=== PATIENT | female | born 1950 | race Caucasian/White ===

== ENCOUNTER → 2016-12-15 | Outpatient (CLI) | payer OTHER, MEDICARE ==
[~2016-12-15] VITALS: Ht 160 cm; Wt 59.9 kg
[~2016-12-15] MED LIST: ALENDRONATE; AMITRIPTYLINE H10 M1 PO; ARMOUR THYROID15 M1 PO; CADUET 10 MG-21 EACH PO; CEPHALEXIN 500500 M1 PO; ELAVIL PO; FENTANYL PA25 MCG/HR TP; FENTANYL PA50 MCG/HR TP; FENTANYL PATCH75 MCG TP; FLEXERIL PO; HYDROCODON-ACE1 EAC5 PO; LUNESTA3 MG PO; MEDROLDOSEPACK PO; MOBIC15 MG PO; NEURONTIN 300300 M1 PO; OPANA ER10 MG PO; OXYCONTIN CR 2020 M1 PO; OXYCONTIN CR 4040 M1 PO; OXYCONTIN10 M1 PO; OXYCONTIN20 M1 PO; OXYCONTIN30 MG PO; OXYCONTIN40 MG PO; OXYCONTIN60 MG PO; PERCOCET 10-321 EAC1 PO; PERCOCET 10-321 EACH PO; PERCOCET 5-3251 EACH PO; PERCOCET PO; REQUIP 1 MG TABL1 M1 PO; SPIRONOLACTONE100 M1 PO; SPIRONOLACTONE100 M4; SPIRONOLACTONE50 MG PO
--- NOTE | ~2016-12-15 | HPC ---
[facility] [place] [address] PAIN MANAGEMENT CONSULTATION Name: JEAN MARIE CH Room #: REG [facility].#: [id number] Admission: 12/15/16 Attend Phys: Kandace Jones MD Discharge: Date of : 48 Report #: [id number] THIS REPORT FOR: //name// CC: Robbie Jones DATE OF SERVICE: 12/15/2016 PRIMARY PHYSICIAN: Aniyah Avalos MD FOLLOWUP COMPLAINT: Here for medication renewal. FOLLOWUP HISTORY: The patient is a 66-year-old female who has been followed in the pain clinic because of chronic cervical pain. She also has had pain as a result of hip problems. At this point, she continues to have pain and discomfort, which radiates down into her arm. She is considering surgery for this problem. She is scheduled for this summer. She feels that her medications continue to be quite helpful. She would like to proceed with this surgery. She finds that her opioid medications continue to be helpful and enable her to stay gainfully employed. As you recall, she works as a teacher. She has come today for renewal of her medications. She is not having any adverse effects. She finds that they continue to be helpful and enable her to remain gainfully employed. PHYSICAL EXAMINATION: Blood pressure is 155/90, pulse 88, respiratory rate 16, room air saturation is 99%. The patient has pain and discomfort in the neck with pain radiating down to her arm. She continues to work. She notes working on her computer worsens pain and discomfort. She also note some increased pain at night. IMPRESSION: Cervical radiculopathy. The patient is scheduled to undergo cervical treatment this summer after school is out. RECOMMENDATIONS: 1. We discussed treatment options with the patient. She will continue with her current medical regimen of Percocet 5 one q. 4-6 p.r.n. worsening of pain and with her current medical regimen of Percocet 10/325 one p.o. t.i.d. and OxyContin 10 mg b.i.d. 2. 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 3. History of knee and hip surgeries, improved. [facility] [address] [place] [address] PAIN MANAGEMENT CONSULTATION Name: JEAN MARIE CH Room #: REG JARAD Ross.#: [id number] Admission: 12/15/16 Attend Phys: Kandace Jones MD Discharge: Date of : 48 Report #: [id number] We would like to thank you for letting us participate in her care. We hope she continues to improve. By: [id number] Kandace Jones MD /nt
[2016-12-15 11:06] VITALS: BP 155/90
== END | disposition home or self-care (01) ==
LOC: PAIN 06:55
DX: M54.12 Radiculopathy, cervical region (principal); G89.29 Other chronic pain; Z98.890 Other specified postprocedural states

== ENCOUNTER → 2017-03-11 | Outpatient (CLI) | payer OTHER, MEDICARE ==
[~2017-03-11] VITALS: Ht 160 cm; Wt 59.1 kg
[2017-03-11 08:40] VITALS: BP 155/110
== END | disposition home or self-care (01) ==
LOC: PAIN 06:48
DX: M48.02 Spinal stenosis, cervical region (principal); G89.29 Other chronic pain; D80.8 Other immunodeficiencies with predominantly antibody defects; Z98.890 Other specified postprocedural states; Z88.8 Allergy status to other drugs, medicaments and biological substances

== ENCOUNTER → 2017-05-11 | Outpatient (CLI) | payer OTHER, MEDICARE ==
[~2017-05-11] VITALS: Ht 162.6 cm; Wt 59.9 kg
[~2017-05-11] MED LIST changes: +OXYCODONE HCL20 M1 PO
--- NOTE | ~2017-05-11 | HPC ---
[facility] [place] [address] PAIN MANAGEMENT CONSULTATION Name: JEAN MARIE CH Room #: REG [facility].#: [id number] Admission: 05/11/17 Attend Phys: Kandace Jones MD Discharge: Date of : 48 Report #: [id number] THIS REPORT FOR: //name// CC: Rbobie Jones DATE OF SERVICE: 05/11/2017 FOLLOWUP COMPLAINT: School has started and my pain is a little bit worse. FOLLOWUP HISTORY: The patient is a 66-year-old female who has been followed in the pain clinic because of cervical radiculopathy. 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 She has noted some worsening of her pain and discomfort association with the increased activity and requirements. At this juncture, she would like to postpone surgery until a later date. She feels that change in her medications might provide her more relief and enable her to stay gainfully employed throughout this year. She is having no problems with her medications. She is not having any problems with mentation. She is keeping her medications in a guarded area. She is aware of the possible complications of tolerance as well as depends associated with narcotics, but feels that the benefit she is receiving warrants continuation of her medications. PHYSICAL EXAMINATION: Blood pressure is 156/74, pulse 74, respiratory rate 14, room air saturation 98%. Height 5 feet 4 inches, weight 130 pounds, BMI is 22. The patient has pain and discomfort in the neck with pain radiating down into her arms and neck. She rates her pain as a 03/07. Pain is exacerbated by working on a computer as well as night time, she notes worsening of her pain. IMPRESSION: Cervical radiculopathy, scheduled to undergo surgery in the future as required. 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 RECOMMENDATIONS: We will continue the patient's use of OxyContin 20 mg 1 p.o. b.i.d. will be tried. She will also continue with oxycodone 10/325 one p.o. t.i.d. as needed. She will call us if she has any problems with her medications. We would like to thank you for letting us participate in her care. We hope she continues to improve. By: [id number] Kandace Jones MD /PMT
[2017-05-11 08:15] VITALS: BP 156/74
== END | disposition home or self-care (01) ==
LOC: PAIN 06:53
DX: M54.12 Radiculopathy, cervical region (principal); Z98.890 Other specified postprocedural states; Z79.899 Other long term (current) drug therapy

== ENCOUNTER → 2017-08-24 | Outpatient (CLI) | payer OTHER, MEDICARE ==
[~2017-08-24] MED LIST changes: +DURAGESIC1 EACH TRANSDERM; +OXYCODONE HCL15 MG PO
== END ==
LOC: MRI 07-15 14:30
DX: M48.02 Spinal stenosis, cervical region (principal); M54.12 Radiculopathy, cervical region; M43.05 Spondylolysis, thoracolumbar region; M51.25 Other intervertebral disc displacement, thoracolumbar region; M47.892 Other spondylosis, cervical region; M50.21 Other cervical disc displacement, high cervical region; M50.221 Other cervical disc displacement at C4-C5 level; M50.222 Other cervical disc displacement at C5-C6 level; M50.223 Other cervical disc displacement at C6-C7 level

== ENCOUNTER → 2017-09-23 | Outpatient (CLI) | payer OTHER, MEDICARE ==
[~2017-09-23] VITALS: Ht 160 cm; Wt 63.0 kg
[~2017-09-23] MED LIST changes: +IRBESARTAN150 MG PO
--- NOTE | ~2017-09-23 | HPC ---
[facility] [place] [address] PAIN MANAGEMENT CONSULTATION Name: JEAN MARIE CH Room #: REG JARAD Hawkins.#: [id number] Admission: 09/23/17 Attend Phys: Kandace Jones MD Discharge: Date of : 48 Report #: [id number] THIS REPORT FOR: //name// CC: Robbie Jones DATE OF SERVICE: 09/23/2017 FOLLOWUP COMPLAINT: "I am going to tried to have surgery in a few months. FOLLOWUP HISTORY: The patient is a 67-year-old female who has been followed in the pain clinic because of chronic neck and arm pain. She continues to have cervical radiculopathy. 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 She would like to continue working until the end of this year. At that time, she would then consider undergoing surgery to correct her chronic cervical pain. She feels that her medications are working reasonably well. As you recall, she was forced by her insurance company to try other medications. She failed their use and is now currently on her old medication, which has been most effective which is Percocet 10 mg t.i.d. and OxyContin 20 mg b.i.d. She finds that this medication helps decrease her pain to a level of 5, which she can tolerate. Denies any untoward complications with this medication. Keeps her medications in a guarded area. She is aware of the complications associated with opioid medications, which include possibility of tolerance and addiction. She feels that the medications simply enables her to engage in activities of daily living without problems. She would like to have her medications renewed. She states that she is going to see a neurosurgeon, Dr. Elías Feng in October 2017. ALLERGIES: MORPHINE CAUSED RASH, ITCHING, AND HIVES, FENTANYL WAS PROBLEMATIC AND CAUSE SOME GI UPSET. MEDICATIONS: Current medications include Oxycodone 10/325 mg one p.o. t.i.d., OxyContin 20 mg 1 p.o. b.i.d., spironolactone 100 mg b.i.d., Lunesta 3 mg at bedtime, Requip 1 mg at bedtime, Thyroid 15 mg tablet, Sidney Thyroid 20 mcg daily, and Caduet (amlodipine/atorvastatin) daily. PHYSICAL EXAMINATION: GENERAL: The patient is a well-developed, well-nourished white female. Appearance, appears stated age, orientated x 3. Affect is appropriate. HEENT: Atraumatic, good hearing. Eyes, extraocular eye muscles intact with no problems with the sclerae. Nose is without trauma or discharge. Buccal membranes intact. NECK: Without masses or history of bruits. LUNGS: Clear to auscultation. HEART: Regular rate. [address] [address] PAIN MANAGEMENT CONSULTATION Name: JEAN MARIE CH [facility]: [facility] [id number] Admission: 09/23/17 Attend Phys: Kandace Jones MD Discharge: Date of : 48 Report #: [id number] ABDOMEN: Nontender. NEUROLOGIC: The patient has pain and discomfort in the neck area with pain radiating down into her arms with numbness, tingling, and weakness. Muscle strength is generally within normal limits, 5/5 in the right and left hand. PAIN CLINIC ASSESSMENT: 1. History of osteoarthritis. There is involvement in her neck, hip, and knees. 2. History of rheumatoid arthritis, not applicable. 3. Height 5 feet 3 inches, weight 139 pounds, BMI is 24. 4. Vital signs: Blood pressure 179/118, pulse 80, respiratory rate 20, and room air saturation 98%. 5. Pain intensity 5. 6. Fall risk. Does not need assistance in standing or walking. The patient has not fallen in the last 3 months. 7. The patient on blood thinner, none. 8 History of hypertension, yes. The patient is currently being treated. 9. Opioid therapy greater than 6 weeks. The patient has signed her contract and gets her medications only from one source our pain clinic. 10. Risk assessment tool, low risk. 11. Functional assessment tool 40/70. 12. Recreational drug use, never used recreational drugs. 13. Tobacco, never smoked tobacco. 14. Alcohol, does not use alcohol on a regular basis. IMPRESSION: 1. Cervical radiculopathy, which continues to respond to OxyContin and oxycodone. The patient will continue with her current medical regimen. 2. History of low immunoglobulin status, not problematic at this juncture. 3. History of staph infections in the distant past. 4. History of knee and hip surgery. RECOMMENDATIONS: We discussed treatment options with the patient. Risks and benefits of continued OxyContin medication use were discussed. She finds that her medications continue to be quite problematic. Without this, she would not have been able to work over the last couple of years and has been able to delay long term. 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 She did have problems with fentanyl and morphine when her insurance company required that she try these medications. At this juncture, the renewal of her OxyContin and oxycodone have made her life much more satisfactory. She is going to see Dr. Elías Feng in October 2017. She is contemplating surgery later on this year; hopefully, she can continue working until after school is out. [facility] [address] [place] [address] PAIN MANAGEMENT CONSULTATION Name: JEAN MARIE CH Room #: REG JARAD Ma#: [id number] Admission: 09/23/17 Attend Phys: Kandace Jones MD Discharge: Date of : 48 Report #: [id number] We would like to thank you for letting us participate in her care. We hope she continues to improve. <ELECTRONICALLY SIGNED> By: Kandace Jones MD 10/05/17 [id number] Kandace Jones MD /[facility]
[2017-09-23 08:19] VITALS: BP 179/118
== END ==
LOC: PAIN 06:53
DX: M54.12 Radiculopathy, cervical region (principal); Z86.2 Personal history of diseases of the blood and blood-forming organs and certain disorders involving the immune mechanism; Z86.14 Personal history of Methicillin resistant Staphylococcus aureus infection; Z98.890 Other specified postprocedural states

== ENCOUNTER → 2017-12-16 | Outpatient (CLI) | payer OTHER, MEDICARE ==
[~2017-12-16] VITALS: Ht 160 cm; Wt 63.5 kg
[~2017-12-16] MED LIST changes: -IRBESARTAN150 MG PO
--- NOTE | ~2017-12-16 | HPC ---
[facility] [place] [address] [place] [address] PAIN MANAGEMENT CONSULTATION Name: JEAN MARIE CH Room #: REG JARAD Ma#: [id number] Admission: 12/16/17 Attend Phys: Kandace Jones MD Discharge: Date of : 48 Report #: [id number] THIS REPORT FOR: //name// CC: Robbie Jones DATE OF SERVICE: 12/16/2017 FOLLOWUP COMPLAINT: Here for medication renewal and I talked with Dr. Feng about my neck. He feels that I should wait. FOLLOWUP HISTORY: The patient is a 67-year-old female who has been followed in the pain clinic. As you recall, she is a school age teacher. She has been experiencing cervical radiculopathy for a number of years. Her current medications have been helpful. Because of their use she has been able to continue working. She is considering retiring in the next few months. 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 She rates her pain today as a 7-8. She is somewhat saddened. Dr. Feng stated that she could undergo surgery, but he is not sure that this would totally eliminate her pain. She feels that her current medication is helpful, but is losing some of its effectiveness. She would like to continue with her current medical regimen. ALLERGIES: MORPHINE. MEDICATIONS: Spironolactone 100 mg b.i.d., Lunesta 3 mg at bedtime, Requip 1 mg at bedtime, Thyroid 15 mg, takes 20 mcg daily, amlodipine/atorvastatin 1 tablet daily. PAIN CLINIC ASSESSMENT: 1. History of osteoarthritis involving her neck, hips and knees: 2. Height 5 feet 3 inches, weight 140 pounds, BMI is 24.8. 3. Vital signs, blood pressure 172/107, pulse 75, respiratory rate 14, room air saturation 97%. 4. Pain intensity 7-8 at bedtime, about 5 in the morning. 5. Fall risk. The patient has not fallen in the last 3 months. 6. Blood thinner. The patient is not on a blood thinner 7. History of hypertension. The patient is being treated for hypertension. 8. Opioid therapy. The patient is receiving her medications through the opioid, contract in the pain clinic. 9. Risk assessment tool: Low risk for opioid medications. 10. Functional assessment tool. 2. Recreational drug use. Denies use of recreational drugs. [address] [address] PAIN MANAGEMENT CONSULTATION Name: JEAN MARIE CH Room #: REG [facility]#: [id number] Admission: 12/16/17 Attend Phys: Kandace Jones MD Discharge: Date of : 48 Report #: [id number] 3. Tobacco: The patient has never smoked. 4. Alcohol: The patient does not drink alcoholic beverages. PHYSICAL EXAMINATION: GENERAL: The patient is a well-developed, well-nourished white female. She appears her stated age. Orientation, she is alert and oriented x 3. Affect is appropriate. Speech is fluent is normocephalic, atraumatic. Extraocular muscles intact. Sclerae not injected. Hearing is within normal limits. Mucous membranes are moist. NECK: Without adenopathy or JVD. Notes some increased pain and discomfort with flexion, extension, left and right lateral rotation of her neck. CHEST: Clear to auscultation. HEART: Regular rate. ABDOMEN: Nontender. MUSCULOSKELETAL: Within normal limits without significant scoliosis, lordosis, and kyphosis. Does have some pain and discomfort in the upper extremities with pain that radiates into her neck. Pain can be exacerbated by walking, sitting and more problematic at night. Lower extremities notes some pain and discomfort in the right hip. Has some myofascial pain in the mid portion of her back. IMPRESSION: 1. Cervical radiculopathy, which responds to OxyContin and oxycodone. We will continue with the patient's current medication. 2. Low immunoglobulin status stable at this juncture. 3. History of knee and hip surgery secondary to osteoarthritic changes. 4. Chronic pain, has been seen by the orthopedic surgery who recommends that we continue with her current medications until there is no longer effective. RECOMMENDATIONS: We discussed treatment options with the patient. She is somewhat saddened that Dr. Feng feels that her pain may not be significantly improved with surgery, but could help stabilize her neck. At this juncture, she will continue with the current medication. She will call us if she has any problems with her medications. She has noted some slight decrease in its effectiveness. We will try Gralise/gabapentin and have the treat this. Hopefully, this will give some benefit to the pain and discomfort, which she is experiencing. If her pain continues to be problematic and not help, we may consider increasing her OxyContin/opioid medications. A small amount to help her through the difficult times when the pain is most problematic in the evening. We would like to thank you for letting us participate in her care. A script has been written for her medications. She has been given a medication. She has been given a Gralise dose pack to take over the next 2 weeks. She will call us in about 2 weeks and tell us how things are going. We would like to [facility] [place] [address] PAIN MANAGEMENT CONSULTATION Name: JEAN MARIE CH Room #: REG JARAD Ma#: [id number] Admission: 12/16/17 Attend Phys: Kandace Jones MD Discharge: Date of : 48 Report #: [id number] thank you for letting us participate in her care. We hope she continues to improve. <ELECTRONICALLY SIGNED> By: Kandace Jones MD 12/20/17 08 1336 29 Kandace Jones MD /PMT
[2017-12-16 08:21] VITALS: BP 172/107
== END ==
LOC: PAIN 08:14
DX: M54.12 Radiculopathy, cervical region (principal); M19.90 Unspecified osteoarthritis, unspecified site; Z79.899 Other long term (current) drug therapy; Z88.5 Allergy status to narcotic agent

== ENCOUNTER → 2018-03-03 | Outpatient (CLI) | payer OTHER, MEDICARE ==
[~2018-03-03] VITALS: Ht 160 cm; Wt 61.2 kg
--- NOTE | ~2018-03-03 | HPC ---
[facility] [place] [address] PAIN MANAGEMENT CONSULTATION Name: JEAN MARIE CH Room #: REG JARAD Ma#: [id number] Admission: 03/03/18 Attend Phys: Kandace Jones MD Discharge: Date of : 48 Report #: [id number] THIS REPORT FOR: //name// CC: Robbie Jones DATE OF SERVICE: 03/03/2018 FOLLOWUP COMPLAINT: Here for medications. I have retired. FOLLOWUP HISTORY: The patient is a 67-year-old female who has been followed in the pain clinic because of chronic pain. As you recall, she has some cervical radiculopathy. She also has problems with her hips. She had a hip replaced in the past. At this juncture, she has noticed some worsening of pain and discomfort involving her left hip. She would like to have this one performed. She has followed up with her surgeon. States that now she is on Medicare. She has been put on a waiting list to be evaluated for surgery. It is about July of this year. 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 She continues to have some pain and discomfort. Rates her pain as a 5/10. Pain in the hip is more problematic than that in the neck at this juncture. She would like to continue with her current medications. She does not have any problems with the medications. Does feel that her pain medication is beginning to wane somewhat. Wondering if she could increase her hydrocodone by 10 mg daily. ALLERGIES: MORPHINE. CURRENT MEDICATIONS: Spironolactone 100 mg b.i.d., Lunesta 3 mg at bedtime, Requip 1 mg at bedtime, thyroid 15 mg, amlodipine/atorvastatin 1 mg daily. PAIN CLINIC ASSESSMENT: 1. History of osteoarthritis involving her neck, hips, and knees 2. Height 5 feet 3 inches, weight 135 pounds, BMI is 23.9. 3. Vital signs: Blood pressure 139/104, pulse 74, respiratory rate 14, room air saturation 98%. 4. Pain intensity is 5/10. 5. Fall risk. The patient fell after taking the Gralise medication and since stopped using that medication. 6. Blood thinner. The patient is not on a blood thinning medication. 7. History of hypertension. The patient is being treated for hypertension. 8. Opioid therapy greater than 6 weeks. The patient is on opioid therapy medication and receives from 1 source. 9. Risk assessment tool, low risk for opioid use. 10. Functional assessment tool, 40 out of 70 as a score in the past. [address] [address] PAIN MANAGEMENT CONSULTATION Name: JEAN MARIE CH Room #: REG [facility] Anil#: [id number] Admission: 03/03/18 Attend Phys: Kandace Jones MD Discharge: Date of : 48 Report #: [id number] 11. Recreational drug use. The patient denies use of recreational drugs. 12. Tobacco: The patient denies use of tobacco. 13. Alcohol: The patient denies frequent use of alcoholic beverages. PHYSICAL EXAMINATION: GENERAL: The patient is a well-developed white female, appears her stated age. She is alert and oriented x 3. Her speech is fluent. HEENT: Normocephalic, atraumatic. Extraocular eye muscles intact. Sclerae nonicteric. Hearing is within normal limits. Mucous membranes are moist. NECK: Without adenopathy or JVD. The patient has some increased pain and discomfort with movement, flexion and extension of her neck as well as lateral movement. CHEST: Clear to auscultation. HEART: Regular rate. S1, S2. ABDOMEN: Nontender. MUSCULOSKELETAL: Without significant scoliosis, kyphosis, or lordosis. The patient does have some pain and discomfort involving the left hip. She did very well with her right hip surgery. Has pain and discomfort and walks with more of an antalgic gait because of the pain in the left hip. IMPRESSION: 1. Cervical radiculopathy, which responds to OxyContin and oxycodone. The patient will continue with her medications. She has been given an additional 10 mg of oxycodone to take daily to help shoulder pain. 2. Immunoglobulin status stable at this juncture. 3. History of knee and hip surgery secondary to osteoarthritic changes. 4. Chronic pain. The patient will follow up with her orthopedic surgery for the possibility of an additional left hip surgery. RECOMMENDATIONS: We discussed treatment options with the patient. We will continue with her current use of medication. She will follow up with her orthopedic surgeon with the possibility of surgery in the latter part of the year. Hopefully, things continue to work well. She will continue with her opioid medications. We have stopped the Gralise medication given that it caused her to have some problem with her balance and equilibrium. She will call us if she has any problem with her medications. We would like to thank you for letting us participate in her care. We hope she continues to improve. By: [id number] Kandace Jones MD /PMT
[2018-03-03 08:44] VITALS: BP 139/104
== END ==
LOC: PAIN 06:49
DX: M54.12 Radiculopathy, cervical region (principal); G89.29 Other chronic pain; M16.12 Unilateral primary osteoarthritis, left hip; Z79.899 Other long term (current) drug therapy

== ENCOUNTER → 2018-05-19 | Outpatient (CLI) | payer OTHER, MEDICARE ==
[~2018-05-19] VITALS: Ht 160 cm; Wt 63.5 kg
[~2018-05-19] MED LIST changes: +IRBESARTAN150 MG PO
[2018-05-19 08:56] VITALS: BP 122/91
== END ==
LOC: PAIN 06:57
DX: M17.0 Bilateral primary osteoarthritis of knee (principal); M16.0 Bilateral primary osteoarthritis of hip; M47.812 Spondylosis without myelopathy or radiculopathy, cervical region; G89.29 Other chronic pain; Z79.899 Other long term (current) drug therapy

== ENCOUNTER → 2018-05-26 | Outpatient (CLI) | payer OTHER, MEDICARE ==
[~2018-05-26] VITALS: Ht 160 cm; Wt 62.9 kg
--- NOTE | ~2018-05-26 | HPC ---
[facility] [place] [address] PAIN MANAGEMENT CONSULTATION Name: JEAN MARIE CH Room #: REG JARAD Ma#: [id number] Admission: 05/26/18 Attend Phys: Kandace Jones MD Discharge: Date of : 48 Report #: [id number] THIS REPORT FOR: //name// CC: Robbie Jones DATE OF SERVICE: 05/26/2018 FOLLOWUP COMPLAINT: Pain is still very painful and unrelenting. FOLLOWUP HISTORY: The patient is a 68-year-old female who has been followed in the pain clinic for quite a number of years. As you recall, she has pain and discomfort involving her hip. She has been experiencing pain, which is very severe involving her left hip and groin. She has had the right hip replaced some years ago. She has noted good relief from that. At this juncture, her left hip is failing. She has tried opioid medications and her current medication regimen is just not working. She is waking at night, writhing in pain because of the pain and discomfort. She has returned to the pain clinic in an effort to try to find a more balanced control for her pain. She rates the pain as an 8/10. Describes it as a sharp shooting deep ache. Pain has limited her activities of daily living. She is unable to walk without great pain as well as standing is problematic. Lying down can be problematic. She finds that nothing alleviates the pain and discomfort. She is being followed by her surgeon. She is scheduled in the near future to undergo a left hip arthroplasty. 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 Feels that the medication that she is taking has not caused any problems with her sensorium. She is able to think clearly. She has tried a number of medications, which are listed that did not work well for her. Her current medication and the only one that she has been able to take with any reasonable amount of success has been OxyContin/oxycodone medications. ALLERGIES: MORPHINE, FENTANYL WAS PROBLEMATIC, AND METHADONE WAS PROBLEMATIC. MEDICATIONS: Spironolactone 100 mg b.i.d., Lunesta 3 mg at bedtime, Requip 1 mg at bedtime, amlodipine/atorvastatin ____, irbesartan 150 mg, Percocet 10/325 one p.o. q.4 hours p.r.n., OxyContin 20 mg one p.o. b.i.d., meloxicam 15 mg, and Thyroid ____, takes 20 mcg daily. PAIN CLINIC ASSESSMENT/PQRS: 1. History of osteoarthritis involving her neck, hips, and knees. The patient is not being treated for rheumatoid arthritis. She is being treated for osteoarthritis. 2. Height 5 feet 3 inches, weight 138 pounds, BMI is 24.6. 3. Vital signs: Blood pressure 136/85, pulse 79, respiratory rate 16, room air saturation is 100%. 4. Pain intensity 04/07. [place] [address] PAIN MANAGEMENT CONSULTATION Name: JEAN MARIE CH Room #: REG JARAD Ma#: [id number] Admission: 05/26/18 Attend Phys: Kandace Jones MD Discharge: Date of : 48 Report #: [id number] 5. Fall risk. The patient has not fallen in the last 3 months. 6. The patient did fall after taking Gralise in the past. 7. Blood thinner. The patient is not on a blood thinning medication. 8. Hypertension. The patient is being treated for hypertension. 9. Opioid therapy greater than 6 weeks. The patient is being treated with opioid medication secondary to exquisitely painful left hip. 10. Risk assessment tool, low risk for opioids. 11. Functional assessment tool, 40/70. 12. Recreational drug use. The patient denies use of recreational drugs. 13. Tobacco: The patient has never smoked. 14. Alcohol: The patient denies frequent use of alcoholic beverages. PHYSICAL EXAMINATION: GENERAL: The patient is a well-developed, well-nourished white female. Appears her stated age. She is alert and oriented x 3. Her speech is fluent. Affect is appropriate. The patient is showing grimacing and outward pain signals during the conversation as she moves and adjust herself in a chair. HEENT: Normocephalic, atraumatic. Extraocular eye muscles intact. Sclerae nonicteric. Hearing is within normal limits. Mucous membranes are moist. NECK: Without adenopathy or JVD. The patient has some increased pain and discomfort with movement. Flexion and extension of neck as well as in the lateral areas are somewhat more limited. CHEST: Clear to auscultation. HEART: Regular rate. S1, S2. ABDOMEN: Nontender. Bowel sounds positive. MUSCULOSKELETAL: Without significant scoliosis, kyphosis, or lordosis. The patient does have pain and discomfort involving her left hip. Walks with a very antalgic gait and a slight hop. She has pain and discomfort while standing. States that her right hip has healed very well. There is no pain or discomfort in this area. Does have pain and discomfort and continues to walk with an antalgic gait with the left hip. Continues to move and change positions with grimacing on her face during the interview. IMPRESSION: 1. Cervical radiculopathy with response to OxyContin and oxycodone. The patient will continue with her medications. She has been given additional 10 mg of oxycodone to take when her pain becomes more problematic. 2. 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 History of infections secondary to methicillin-resistant Staphylococcus aureus. 3. History of knee and hip surgery, secondary to osteoarthritic changes. 4. Chronic pain. 5. Exacerbation of pain secondary to worsening of pain and discomfort in the left hip area. RECOMMENDATIONS: We discussed treatment options with the patient. At this juncture, her pain has become quite problematic. We will increase the dose and [address] [address] PAIN MANAGEMENT CONSULTATION Name: JEAN MARIE CH Room #: REG [facility] MRick.#: [id number] Admission: 05/26/18 Attend Phys: Kandace Jones MD Discharge: Date of : 48 Report #: [id number] the patient will take oxycodone 20 mg 1 p.o. 2 tablets in the morning and 1 tablet at night. She will also continue with Percocet 10 mg 1 p.o. q.4-6h. Total of 137 tablets have been provided. She is aware of opioids and complications, which could include addiction as well as tolerance. The patient has noticed that her left hip has continued to break down faster than she thought. Pain has escalated. At this juncture, she will continue with her medications. She is fully aware that she will need to decrease these medications after the surgery. She was on a higher level in the past and was able to decrease medications after her surgical event. We would like to thank you for letting us participate in her care. We hope she continues to improve. <ELECTRONICALLY SIGNED> By: Kandace Jones MD 06/12/18 [id number] Kandace Jones MD /nt
[2018-05-26 10:04] VITALS: BP 136/85
== END ==
LOC: PAIN 09:13
DX: M54.12 Radiculopathy, cervical region (principal); G89.29 Other chronic pain; Z79.899 Other long term (current) drug therapy

== ENCOUNTER → 2018-08-04 | Outpatient (CLI) | payer OTHER, MEDICARE ==
[~2018-08-04] VITALS: Ht 157.5 cm; Wt 65.5 kg
--- NOTE | ~2018-08-04 | HPC ---
[facility] [place] [address] [place] [address] PAIN MANAGEMENT CONSULTATION Name: JEAN MARIE CH Room #: REG SHILPAKatie Ma#: [id number] Admission: 08/04/18 Attend Phys: Kandace Jones MD Discharge: Date of : 48 Report #: [id number] THIS REPORT FOR: //name// CC: Robbie Jones DATE OF SERVICE: 08/04/2018 HISTORY: The patient is a 68-year-old female who has been followed in the pain clinic because of chronic pain. She has had pain, which has been problematic for a number of years. She has had pain in the hips. She has been noticing a worsening of pain in her left hip and groin area. She is considering having a hip replacement. The right hip replacement, which was done some years ago, has been quite helpful. In the very near future, she is going to undergo a left hip replacement. She has returned to the pain clinic for renewal of her medications. Rates her pain as an 8/10. It involves the left hip and is scheduled to have this done on 08/09/2018. Feels that her medications overall working reasonably well and she would like to follow up with the pain clinic postop for medication adjustments if necessary. I think this would be reasonable. She understandably is somewhat nervous about undergoing the procedure. A script for her medications of Percocet 10/325 one p.o. q.4 hours, meloxicam and OxyContin 80 mg b.i.d. have been issued. ALLERGIES: MORPHINE, FENTANYL, METHADONE were all problematic. MEDICATIONS: Spironolactone 100 mg b.i.d., Lunesta 3 mg at bedtime, Requip at bedtime, amlodipine/olmesartan 1 mg daily 150 mg, Percocet 10/325 one p.o. q.4 hours p.r.n., OxyContin 20 mg one p.o. b.i.d., Meloxicam 15 mg, Thyroid 20 mcg daily. PAIN CLINIC ASSESSMENT/PQRS: 1. History of osteoarthritis. The patient has arthritic changes involving her neck, hips, knees and is not being treated for rheumatoid arthritis. 2. Height 5 feet 3 inches, weight 144 pounds, BMI is 26. 3. Vital signs: Blood pressure 122/85, pulse 89, respiratory rate 18, room air saturation 98%. 4. Pain intensity 8/10. 5. Fall risk. The patient has not fallen in the last 3 months. 6. Blood thinner. The patient is not on a blood thinning medication. 7. Hypertension. The patient is being treated for hypertension. 8. Opioids greater than 6 weeks. The patient receives her medication [facility], the pain clinic. 9. Risk assessment tool, low risk for opioid use. 10. Functional assessment tool 40/70. 11. Recreational drugs. The patient denies use of recreational drugs. 12. Tobacco: The patient has never smoked. [address] [address] PAIN MANAGEMENT CONSULTATION Name: JEAN MARIE CH Derrell Room #: REG JARAD Ma#: [id number] Admission: 08/04/18 Attend Phys: Kandace Jones MD Discharge: Date of : 48 Report #: [id number] 13. Alcohol: The patient denies use of alcoholic beverages. PHYSICAL EXAMINATION: GENERAL: The patient is a well-developed, well-nourished white female. Appears her stated age. She is alert and oriented x 3. Her affect is appropriate. Speech is fluent. HEENT: Normocephalic, atraumatic. Extraocular eye muscles intact. Sclerae nonicteric. Hearing is within normal limits. Mucous membranes are moist. NECK: Without adenopathy or JVD. The patient has increased pain and discomfort with flexion and extension of her neck. She has had some problems in the past with cervical radicular pain. CHEST: Clear to auscultation. HEART: Regular rate. S1, S2. ABDOMEN: Nontender. Bowel sounds positive. MUSCULOSKELETAL: Without significant scoliosis, kyphosis or lordosis. The patient has pain and discomfort in her left hip. Walks with an antalgic gait with a slight hop. The patient has some discomfort while standing. IMPRESSION: 1. History of osteoarthritis, changes in her left hip. Status post right hip replacement and is going to undergo left hip replacement 08/09/2018. 2. History of immunoglobulin status. 3. History of infection secondary to methicillin-resistant Staphylococcus aureus. 4. History of knee and hip surgery secondary to osteoarthritic changes. 5. Chronic pain. 6. Exacerbation of pain secondary to worsening of pain and discomfort in the left hip. RECOMMENDATIONS: We discussed treatment options with the patient. At this juncture, we have rewritten medications for her OxyContin and Percocet. The patient will take these medications as prescribed. She will be under the care of her orthopedic surgeon for the next few days after surgery. If her pain becomes more problematic, she will follow up in the pain clinic at which time we will then make adjustments to help control her pain. The patient has never shown signs of addiction. Has taken her medications as prescribed. We would like to thank you for letting us participate in her care. Hopefully, she will notice an improvement in her pain involving her left hip after it has been replaced. We would like to thank you for letting us participate in her care. By: [id number] Kandace Jones MD /cristy
[2018-08-04 08:35] VITALS: BP 122/85
== END ==
LOC: PAIN 05:39
DX: M54.2 Cervicalgia (principal); M25.561 Pain in right knee; M25.551 Pain in right hip; Z79.899 Other long term (current) drug therapy; G89.29 Other chronic pain

== ENCOUNTER → 2018-10-27 | Outpatient (CLI) | payer OTHER, MEDICARE ==
[~2018-10-27] VITALS: Ht 160 cm; Wt 64.0 kg
[2018-10-27 10:32] VITALS: BP 149/108
--- NOTE | 2018-10-27 10:43 | NUR ---
Pain Clinic Assessment: 1. History of Osteoarthritis: NECK HIPS AND KNEES History of Rheumatoid Arthritis: Not Applicable 2. Height: 5 ft. 3 in. 160.0 cm. Weight: 141.2 lb. oz. 64.048 kg. Patient's BMI: 25.0 3. Vital Signs: BP: 149/108 Pulse: 91 Resp: 18 Temp: 02 Sat: 96 ECG Mon: 4. Pain Intensity: 0 5. Fall Risk: Dizziness: N Needs help standing or walking: N Fallen in the last 3 months: N Fall risk comments: FELL X1 AFTER TAKING GRALISE 6. Patient on Blood Thinner: None 7. History of Hypertension: Y 8. Opioid Therapy greater than 6 weeks: Y Opiate Contract Signed: 04/01/16 9. Risk Assessment Tool Provided: LOW RISK 10. Functional Assessment Tool: 40 11. Recreational Drug Use: Never Drug Type: Tobacco Use: Never Smoker Tobacco Type: Amount or Packs/day: How Many Years: Alcohol Use: No Frequency: Quant:
== END ==
LOC: PAIN 10-11 14:46
DX: G89.29 Other chronic pain (principal); Z96.642 Presence of left artificial hip joint; Z79.899 Other long term (current) drug therapy

== ENCOUNTER → 2018-11-24 | Outpatient (CLI) | payer OTHER, MEDICARE ==
[~2018-11-24] VITALS: Ht 160 cm; Wt 64.5 kg
--- NOTE | ~2018-11-24 | HPC ---
[facility] [place] [address] PAIN MANAGEMENT CONSULTATION Name: JEAN MARIE CH Room #: REG SHILPAKatie Ma#: [id number] Admission: 11/24/18 ������������������ Attend Phys: Kandace Jones MD Discharge: ������������������ Date of : 48 Report #: [id number] THIS REPORT FOR: //name// CC: Robbie Jones DATE OF SERVICE: 11/28/2018 PRIMARY CARE PHYSICIAN: The patient is a 68-year-old female who has been followed in the Pain Clinic because of chronic cervical pain. She has also had pain and discomfort in her hips. She has recently had a hip replacement in 2018; this was in July. She has noticed an improvement in her pain. At this juncture, she is having pain in both her left and right knee. She has been weaning down on her opioid medications, which she has been taking for the hip pain as well as cervical pain. She has noticed an increase in pain and discomfort in her knees. Rates it as 7/10. At this juncture, she would like to maintain her opioid level at this level. She is contemplating the possibility of knee replacement. She feels overall that things are going reasonably well. She is not having significant pain in her hips. She is quite happy that this is a time in life which she finally is having less pain and discomfort in the hip area, but now the knee pain is more problematic now as she has decreased her opioid use. ALLERGIES: MORPHINE, FENTANYL caused some problems and she was unable to tolerate it in the past, and METHADONE. MEDICATIONS: Oxycodone 10 mg 1 p.o. q.12 hours, irbesartan 150 mg daily, spironolactone 100 mg b.i.d., Lunesta 3 mg at bedtime, Requip 1 mg at bedtime, [place] Thyroid 15 mg total of 20 mcg daily, and amlodipine/atorvastatin 10 mg/20. PAIN CLINIC ASSESSMENT/PQRS: 1. History of osteoarthritis involving her neck, hip and knees. The patient has not been treated for rheumatoid arthritis. 2. Height 5 feet 3 inches, weight 142 pounds, BMI is 25.2. 3. Vital signs: Blood pressure 137/92, pulse 90, respiratory rate 14, room air saturation 97%. 4. Pain intensity 03/07. 5. Fall history: The patient has not fallen in the last 3 months. 6. Blood thinner. The patient is not on a blood thinning medication. 7. Hypertension. The patient has been treated for hypertension. 8. Opioids greater than 6 weeks. The [facility]. 9. Risks assessment tool, low for opioid use. 10. Functional assessment tool, 40/70. 11. Recreational drug use. The patient denies use of recreational drugs. [facility] [address] [place] [address] PAIN MANAGEMENT CONSULTATION Name: JEAN MARIE CH Room #: REG JARAD Ma#: [id number] Admission: 11/24/18 ������������������ Attend Phys: Kandace Jones MD Discharge: ������������������ Date of : 48 Report #: [id number] 12. Tobacco: The patient has never smoked. 13. Alcohol: The patient denies frequent use of alcoholic beverages. PHYSICAL EXAMINATION: GENERAL: The patient is a well-developed, well-nourished white female. Appears her stated age. She is alert and oriented x 3. Her affect is appropriate. Speech is fluent. HEENT: Normocephalic, atraumatic. Extraocular eye muscles intact. Sclerae nonicteric. Mucous membranes are moist. NECK: Without adenopathy or JVD. The patient has good movement in her neck and arms. She is not complaining of cervical radicular pain or sensory changes. CHEST: Clear to auscultation. HEART: Regular rate. S1, S2. ABDOMEN: Nontender. Bowel sounds present. MUSCULOSKELETAL: Without significant scoliosis, kyphosis or lordosis. The patient has well healing hips. She is not complaining of pain and discomfort in the hip area. She is post-hip replacement. The patient complains of pain and discomfort in her knees bilaterally. IMPRESSION: 1. Bilateral knee pain with osteoarthritis, [id number]. 2. History of osteoarthritis of the hips, status post both left and right hip replacements, doing well at this juncture. 3. History of immunoglobulin status, which is low. 4. History of secondary infections with methicillin-resistant Staphylococcus aureus. 5. Chronic pain, treated with complex medical management using opioid medication. 6. Exacerbation and worsening of pain in the knees. RECOMMENDATION: We discussed treatment options with the patient. At this juncture, we will continue with her current medical regimen. We will increase her medication to Percocet 5 mg 1 p.o. t.i.d. and to continue to use with OxyContin. She will call us if she has any concerns. We would like to thank you for letting us participate in her care. We hope she continues to improve. ��������������������������������������������� ���������������������������������������� By: ��������������������������������������������� [id number] Kandace Jones MD /cristy
[2018-11-24 13:31] VITALS: BP 137/92
--- NOTE | 2018-11-24 13:44 | NUR ---
Pain Clinic Assessment: 1. History of Osteoarthritis: NECK HIPS AND KNEES History of Rheumatoid Arthritis: Not Applicable 2. Height: 5 ft. 3 in. 160.0 cm. Weight: 142.2 lb. oz. 64.501 kg. Patient's BMI: 25.2 3. Vital Signs: BP: 137/92 Pulse: 90 Resp: 14 Temp: 02 Sat: 97 ECG Mon: 4. Pain Intensity: 7 5. Fall Risk: Dizziness: N Needs help standing or walking: Y Fallen in the last 3 months: N Fall risk comments: FELL X1 AFTER TAKING GRALISE 6. Patient on Blood Thinner: None 7. History of Hypertension: Y 8. Opioid Therapy greater than 6 weeks: Y Opiate Contract Signed: 04/01/16 9. Risk Assessment Tool Provided: LOW RISK 10. Functional Assessment Tool: 40 11. Recreational Drug Use: Never Drug Type: Tobacco Use: Never Smoker Tobacco Type: Amount or Packs/day: How Many Years: Alcohol Use: No Frequency: Quant:
== END ==
LOC: PAIN 07:00
DX: M17.0 Bilateral primary osteoarthritis of knee (principal); G89.29 Other chronic pain; Z96.643 Presence of artificial hip joint, bilateral; Z79.891 Long term (current) use of opiate analgesic; Z86.2 Personal history of diseases of the blood and blood-forming organs and certain disorders involving the immune mechanism; Z86.14 Personal history of Methicillin resistant Staphylococcus aureus infection

== ENCOUNTER → 2018-12-22 | Outpatient (CLI) | payer OTHER, MEDICARE ==
[~2018-12-22] VITALS: Ht 160 cm; Wt 64.6 kg
[~2018-12-22] MED LIST changes: +OXYCODONE-ACET1 EAC2 PO
[2018-12-22 09:29] VITALS: BP 157/89
--- NOTE | 2018-12-22 09:39 | NUR ---
Pain Clinic Assessment: 1. History of Osteoarthritis: NECK HIPS AND KNEES History of Rheumatoid Arthritis: Not Applicable 2. Height: 5 ft. 3 in. 160.0 cm. Weight: 142.4 lb. oz. 64.592 kg. Patient's BMI: 25.2 3. Vital Signs: BP: 157/89 Pulse: 86 Resp: 16 Temp: 02 Sat: 98 ECG Mon: 4. Pain Intensity: 5 NOW 9 EVENINNG 5. Fall Risk: Dizziness: N Needs help standing or walking: Y Fallen in the last 3 months: N Fall risk comments: FELL X1 AFTER TAKING GRALISE 6. Patient on Blood Thinner: None 7. History of Hypertension: Y 8. Opioid Therapy greater than 6 weeks: Y Opiate Contract Signed: 04/01/16 9. Risk Assessment Tool Provided: LOW RISK 10. Functional Assessment Tool: 40 11. Recreational Drug Use: Never Drug Type: Tobacco Use: Never Smoker Tobacco Type: Amount or Packs/day: How Many Years: Alcohol Use: No Frequency: Quant:
--- NOTE | 2018-12-25 08:30 | HPC ---
[facility] [place] [address] PAIN MANAGEMENT CONSULTATION Name: JEAN MARIE CH Room #: REG JARAD Ma#: [id number] Admission: 12/22/18 ������������������ Attend Phys: Qi Bhatti Discharge: ������������������ Date of : 48 Report #: [id number] THIS REPORT FOR: //name// CC: Qi Bhatti Robbie Dill DATE OF SERVICE: 12/22/2018 CHIEF COMPLAINT: Chronic cervical pain and knee pain. HISTORY OF PRESENT ILLNESS: This is a very pleasant 68-year-old female who returns to the pain clinic today for an adjustment of her pain medications. She is needing knee surgery, but unfortunately needs to wait to have her right knee replaced until February. She had been decreasing her medicines since she had had her hip replaced and doing quite well until her knee flared up and we had been tapering her medicines, which has been ineffective now in controlling her pain. The patient tells me her pain score is 5/10 today, but in the evening it is a 9/10. It is a throbbing, achy pain, worse with standing and walking, better with medication and sitting down. She is trying to do physical therapy to increase her muscle strength, getting ready for knee surgery, but she tells me that her walking and the exercises have been aggravating her pain. The patient tells me that she has been taking her OxyContin 20 mg in the morning again and at noon and the breakthrough pain medicines also fairly early in the day. This leaves her at nighttime with significant pain and she is here for guidance with her medications as well as a possible increase. ALLERGIES: MORPHINE. CURRENT MEDICATIONS: OxyContin 20 mg b.i.d., oxycodone 5/325 t.i.d. p.r.n., irbesartan 150 mg daily, spironolactone 100 mg b.i.d., Lunesta 3 mg at bedtime, Requip 1 mg at bedtime, [place] Thyroid is 20 mcg daily and Caduet 10/20 once a day. PQRS: 1. She has history of osteoarthritis in her neck, knees and hips. Denies any rheumatoid arthritis. 2. Height is 5 feet 3 inches, weight is 142, BMI is 25. 3. Vital signs, blood pressure 157/89, pulse is 86, respirations 16, oxygen sat 98. 4. Pain score 5-9/10. 5. Denies dizziness. Does need help walking occasionally with a cane, has not fallen in the last 3 months. 6. The patient is not on any blood thinners. She does take medicine for hypertension. 7. Opiate therapy is greater than 6 weeks, therefore, an opioid signed contract [address] [address] PAIN MANAGEMENT CONSULTATION Name: DIMAJEAN MARIE T Room #: MARIUSZ Ma#: [id number] Admission: 12/22/18 ������������������ Attend Phys: Qi Bhatti Discharge: ������������������ Date of : 48 Report #: [id number] is on the chart. Her risk assessment tool is low. Her functional assessment is 40/70. 8. Recreational drug use, she denies. She is not a smoker and does not drink alcohol. 9. We did check the prescription monitoring system. The patient is filling appropriately for her medicines from Dr. Jones, she is due for her oxycodone today, but not her OxyContin. PHYSICAL EXAMINATION: GENERAL: This is a well-developed, well-nourished white female who appears her stated age. Placing her pain score today around 5/10. She is alert and orientated and her affect is appropriate. HEENT: Normocephalic, atraumatic. Extraocular eye muscles are intact. Mucous membranes are moist. NECK: Without adenopathy or JVD. She does have good range of motion in her arms and not complaining of neck issues today. MUSCULOSKELETAL: Without significant scoliosis, kyphosis or lordosis. Complains of significant right knee pain. No swelling noted. Pain with ambulation of the right knee. Lower extremity strength judged to be 5/5 bilaterally in all major muscle groups. ASSESSMENT: 1. Bilateral knee pain with osteoarthritis, [id number], awaiting knee replacement. 2. History of osteoarthritis in her hips, status post bilateral hip replacement. 3. History of immunoglobulin status. 4. History of secondary infections with methicillin-resistant Staphylococcus aureus. 5. Chronic pain. 6. Complex medical management under terms of written opioid agreement. We reviewed the fact that opiate medications are being used to provide analgesia adequate to support activities of daily living, not attempting to achieve a specific pain score on the 0-10 Visual Analog Scale. The current opiate medications are providing sufficient analgesia to allow the patient to participate in activities of daily living. The patient is not exhibiting any aberrant behavior suggestive of drug diversion. The patient is not having any adverse reactions to medications. The patient is not suffering from daytime somnolence or mental acuity changes. The patient is managing opiate-induced constipation with appropriate uaqb-wmz-nvjzgjc agents and dietary considerations. The patient was counseled on concern for caution with operating a motor vehicle while using opiate medications. A physical exam was performed and the patient's functional status was evaluated. All patients with back pain were advised against the bed rest greater than 4 [facility] [address] [place] [address] PAIN MANAGEMENT CONSULTATION Name: JEAN MARIE CH Room #: REG [facility]#: [id number] Admission: 12/22/18 ������������������ Attend Phys: Qi Bhatti Discharge: ������������������ Date of : 49 Report #: [id number] days and were advised to return to normal activities. Pain score assessment was noted and the treatment plan was reviewed with the patient. All current medications, both prescribed and OTC were reviewed and reconciled on the electronic medical record. Tobacco screening was accomplished and smoking cessation was advised when indicated. BMI was noted and diet/exercise modification was recommended for all patients following outside normal parameters. I reviewed with the patient today their responsibilities to safeguard prescription medications, reviewed their responsibility to utilize medications only as prescribed by the physician. They are to seek and receive pain medications only from 1 physician group ( [facility]). They are to use 1 pharmacy and keep the clinic informed if they change pharmacies. Their responsibilities include making followup visits in a timely fashion and to avoid abrupt discontinuation of medication usage. Their responsibilities further include bringing their medications (bottles from the pharmacy with residual pills) to the visit for possible confirmation of pill counts and the patient understands it is their responsibility to submit to random drug screens to ensure both that the medications prescribed are present, and that no other controlled substances are present. All prescriptions provided today were generated electronically. PLAN: 1. We discussed treatment options with the patient today. The patient had been doing significantly better with her hip replacement. Now, she is awaiting right knee replacement and is having increased pain, after much discussion today and discussion with Dr. Jones who did see the patient also, it was decided to increase her oxycodone slightly until her surgery. The patient will continue on her current dose of OxyContin, after surgery will try to taper her back again on her medications, her goal is to go off of her pain medicine as she is able. 2. Script was given today for oxycodone 10/325 one tablet 3 times a day, #90 to be released today in 4-week and OxyContin 20 mg 2 times a day, #60 for today and 4-week release. 3. We discussed her medications and extended release versus immediate release and how long it takes for them to start working. I encouraged the patient to take her OxyContin in the morning and at 6 in the evening or at bedtime and encouraged her to space her breakthrough pain medicines throughout the day, taking them prior to her walking such as at noon and later in the afternoon and then entities her one at bedtime. The patient verbalized understanding of the goal that was drawn on a MAP as well as the peaks and valleys of long and short term medications. She will try to space out her medications. 4. The patient will be seen in 2-month time period, which [place] [address] PAIN MANAGEMENT CONSULTATION Name: JEAN MARIE CH Room #: MARIUSZ Ma#: [id number] Admission: 12/22/18 ������������������ Attend Phys: Qi Bhatti Discharge: ������������������ Date of : 48 Report #: [id number] surgery. We will address postop pain at that time. 5. The patient seen in collaboration with Dr. Justus Jones today. ��������������������������������������������� <ELECTRONICALLY SIGNED> ���������������������������������������� By: Qi Bhatti ��������������������������������������������� 12/25/18 0830 1055 0214 Qi Bhatti /nt
== END ==
LOC: PAIN 06:39
DX: G89.29 Other chronic pain (principal); M17.0 Bilateral primary osteoarthritis of knee; M54.2 Cervicalgia; Z88.5 Allergy status to narcotic agent; Z79.899 Other long term (current) drug therapy; Z79.891 Long term (current) use of opiate analgesic; Z96.643 Presence of artificial hip joint, bilateral

== ENCOUNTER → 2019-04-27 | Outpatient (CLI) | payer OTHER, MEDICARE ==
[~2019-04-27] VITALS: Ht 160 cm; Wt 61.7 kg
[~2019-04-27] MED LIST changes: +ASPIRIN EC325 MG PO; +COLACE100 MG PO; +ONDANSETRON HCL4 M2 PO; +SYNTHROID100 MC1 PO; +TRETINOIN20 G1 TOP
--- NOTE | ~2019-04-27 | HPC ---
[facility] [place] [address] PAIN MANAGEMENT CONSULTATION Name: JEAN MARIE CH Room #: REG JARAD Ross.#: [id number] Admission: 04/27/19 ������������������ Attend Phys: Kandace Jones MD Discharge: ������������������ Date of : 48 Report #: [id number] THIS REPORT FOR: //name// CC: Robbie Jones DATE OF SERVICE: 04/27/2019 PRIMARY CARE PHYSICIAN: Robbie Dill MD CHIEF COMPLAINT: Here for renewal of her medications. Things are going reasonably well since the knee replacement. HISTORY: The patient is a very pleasant 68-year-old female who has been followed in the pain clinic because of chronic pain involving her hips, knees and neck. She has returned today for renewal of her medications. She has undergone a knee replacement. The right knee, which has been replaced about 2 weeks ago is doing reasonably well. She does have some bilateral knee pain, right greater than left. Has some aching discomfort, which is chronic and stabbing. She has been increasing her activities, status post surgery. She feels that her medications are quite helpful and she is above the level for her expected recovery. She continues to work hard at this. She notes that the pain improves with sitting and she continues to work to increase the range of motion. Feels her medications are working very well and would like to continue their use. Does not have any complications. ALLERGIES: MORPHINE. CURRENT MEDICATIONS: Oxycodone 10 mg up to 3 times daily, OxyContin 20 mg b.i.d., irbesartan 150 mg, spironolactone 100 mg b.i.d., Lunesta 30 mg at bedtime, Requip 1 mg at bedtime, [place] 20 mcg daily, Caduet 10/20 mg daily. PAIN CLINIC ASSESSMENT/PQRS: 1. The patient has a history of osteoarthritis involving her neck, hips, and knees. The patient denies being treated for rheumatoid arthritis. 2. Height 5 feet 3 inches, weight 136 pounds, BMI is 24. 3. Vital signs: Blood pressure 149/93, pulse 86, respiratory rate 14, room air saturation 99%. Pain intensity 7-8/10. 4. Fall risk. The patient has not fallen. Has increased pain and discomfort in the right knee on occasion, status post replacement. 5. Blood thinner. The patient is not on a blood thinning medication. 6. Hypertension. The patient is being treated for hypertension. 7. Opioids greater than 6 weeks. 8. Risk assessment tool, low for opioid use. 9. Functional assessment tool [address] [place] [address] PAIN MANAGEMENT CONSULTATION Name: JEAN MARIE CH Room #: REG JARAD Ma#: [id number] Admission: 04/27/19 ������������������ Attend Phys: Kandace Jones MD Discharge: ������������������ Date of : 48 Report #: [id number] 10. Recreational drug use, the patient denies. 11. Tobacco: The patient never smoked. 12. Alcohol. The patient denies use of alcoholic beverages. PHYSICAL EXAMINATION: GENERAL: The patient is a well-developed, well-nourished white female. Appears her stated age. She is alert and oriented x 3. Her affect is appropriate. Speech is fluent. HEENT: Normocephalic, atraumatic. Extraocular eye muscles intact. Sclerae nonicteric. Mucous membranes are moist. NECK: Without adenopathy or JVD. HEART: Regular rate. ABDOMEN: Nontender. Bowel sounds present. EXTREMITIES: Upper extremity muscle strength judged to be 5/5 for the major muscle groups of the upper extremity. The patient without significant scoliosis, kyphosis or lordosis. The patient is not having significant pain in her knees. She is having some pain and discomfort because of the right knee replacement. IMPRESSION: 1. Recent replacement of right knee secondary to ihsu-ng-jcph discomfort. 2. History of osteoarthritis of the hip, status post bilateral hip replacements. 3. History of immunoglobulin status, which sometimes remains low. 4. History of secondary infections with methicillin-resistant Staphylococcus aureus. 5. Chronic pain. 6. Complex medical management using opioids to help control the pain. RECOMMENDATIONS: We will continue with her medications. She feels her medications are working reasonably well. She states that she is above her stated goal at this juncture. She continues to push things forward. She realizes her limits and tries to stay within the range. Feels that her medications help control the pain. Only use it as needed. She is not having any untoward consequences of its use. As the patient continues to improve and her pain starts to wane, we would then start to decrease her opioid medication. A script for renewal of her medications of oxycodone 10 mg 1 p.o. b.i.d. has been written. The patient will also continue with OxyContin 20 mg 1 p.o. b.i.d. She will take 2 tablets in the morning and 1 tablet at night. We would like to thank you for letting us participate in her care. We hope she [address] [address] PAIN MANAGEMENT CONSULTATION Name: JEAN MARIE CH Room #: REG JARAD BarrigaLilianaCharlieLiliana#: [id number] Admission: 04/27/19 ������������������ Attend Phys: Kandace Jones MD Discharge: ������������������ Date of : 48 Report #: [id number] continues to improve. We will continue with the patient's pain control using the complex medical management with opioids. ��������������������������������������������� ���������������������������������������� By: ��������������������������������������������� 0932 0000 Kandace Jones MD /EMERY
[2019-04-27 08:34] VITALS: BP 149/93
--- NOTE | 2019-04-27 08:41 | NUR ---
Pain Clinic Assessment: 1. History of Osteoarthritis: NECK HIPS AND KNEES History of Rheumatoid Arthritis: Not Applicable 2. Height: 5 ft. 3 in. 160.0 cm. Weight: 136.0 lb. oz. 61.689 kg. Patient's BMI: 24.1 3. Vital Signs: BP: 149/93 Pulse: 86 Resp: 14 Temp: 02 Sat: 99 ECG Mon: 4. Pain Intensity: 7-8 5. Fall Risk: Dizziness: Y Needs help standing or walking: N Fallen in the last 3 months: N Fall risk comments: R/T KNEE-OCCASIONALLY 6. Patient on Blood Thinner: None 7. History of Hypertension: Y 8. Opioid Therapy greater than 6 weeks: Y Opiate Contract Signed: 04/01/16 9. Risk Assessment Tool Provided: LOW RISK 10. Functional Assessment Tool: 40 11. Recreational Drug Use: Never Drug Type: Tobacco Use: Never Smoker Tobacco Type: Amount or Packs/day: How Many Years: Alcohol Use: No Frequency: Quant:
== END ==
LOC: PAIN 08:14
DX: G89.29 Other chronic pain (principal); M16.11 Unilateral primary osteoarthritis, right hip; Z79.899 Other long term (current) drug therapy; Z88.8 Allergy status to other drugs, medicaments and biological substances

== ENCOUNTER → 2019-06-22 | Outpatient (CLI) | payer OTHER, MEDICARE ==
[~2019-06-22] VITALS: Ht 160 cm; Wt 63.5 kg
[2019-06-22 09:49] VITALS: BP 146/95
--- NOTE | 2019-06-22 09:55 | NUR ---
Pain Clinic Assessment: 1. History of Osteoarthritis: NECK HIPS AND KNEES History of Rheumatoid Arthritis: Not Applicable 2. Height: 5 ft. 3 in. 160.0 cm. Weight: 140.0 lb. oz. 63.504 kg. Patient's BMI: 24.8 3. Vital Signs: BP: 146/95 Pulse: 71 Resp: 14 Temp: 02 Sat: 97 ECG Mon: 4. Pain Intensity: 3 WITH MEDS 5. Fall Risk: Dizziness: N Needs help standing or walking: N Fallen in the last 3 months: N Fall risk comments: R/T KNEE-OCCASIONALLY 6. Patient on Blood Thinner: None 7. History of Hypertension: Y 8. Opioid Therapy greater than 6 weeks: Y Opiate Contract Signed: 04/01/16 9. Risk Assessment Tool Provided: LOW RISK 10. Functional Assessment Tool: 11. Recreational Drug Use: Never Drug Type: Tobacco Use: Never Smoker Tobacco Type: Amount or Packs/day: How Many Years: Alcohol Use: No Frequency: Quant:
--- NOTE | 2019-06-26 15:13 | HPC ---
[facility] [address] [address] PAIN MANAGEMENT CONSULTATION Name: JEAN MARIE CH Room #: REG [facility] Ross.#: [id number] Admission: 06/22/19 Attend Phys: Qi Bhatti Discharge: Date of : 48 Report #: [id number] THIS REPORT FOR: //name// CC: Qi JONES DATE OF SERVICE: 06/22/2019 CHIEF COMPLAINT: Bilateral knee pain. HISTORY OF PRESENT ILLNESS: This is a very pleasant 69-year-old female who returns to the pain clinic today for refill of her medications. She recently had her right knee replaced in March. She feels like she is doing quite well. She does continue her therapy, but does have some pain occasionally with driving and prolonged walking. She feels that her medications are very beneficial, rating her pain score OF 3/10 today. It is an aching, throbbing, tenderness feeling, but her medications as well as sitting helps relieve it. She denies any problems with constipation or daytime sleepiness. ALLERGIES: MORPHINE. CURRENT LIST OF MEDICATIONS: Oxycodone 10/325 t.i.d., OxyContin 20 mg in the morning and 40 mg at night, aspirin, Meloxicam 15 mg, Synthroid 100 mcg, stool softener, irbesartan 150 mg, spironolactone 100 mg, Lunesta 3 mg, Requip 1 mg at bedtime, [place] 15 mg daily and Caduet 10/20 daily. PQRS: 1. She has a history of osteoarthritis involving her neck, hips and knees. She is not being treated for rheumatoid arthritis. 2. Height is 5 feet 3 inches, weight is 140, BMI is 24. 3. Vital signs, blood pressure 146/95, pulse is 71, respirations 14, oxygen sat is 97. 4. Pain score is 3/10. 5. Denies dizziness, does not need help walking or standing, has not fallen in the last 3 months. 6. The patient is not on any blood thinners, but does take medicine for hypertension. 7. Opioid therapy is greater than 6 weeks; therefore, an opioid signed contract is on the chart. Risk assessment tool is low. Functional assessment is 40/70. 8. Recreational drug use, she denies. She is not a smoker and occasionally drinks alcohol. According to the prescription monitoring system, the patient is filling appropriately for her medications. She is due for those today. [address] [address] PAIN MANAGEMENT CONSULTATION Name: JEAN MARIE CH Room #: REG JARAD Ma#: [id number] Admission: 06/22/19 Attend Phys: Qi Bhatti Discharge: Date of : 48 Report #: [id number] PHYSICAL EXAMINATION: GENERAL: This is a well-developed, well-nourished white female who appears her stated age, placing her current pain score at 3/10. Her affect is appropriate. Her speech is fluent. She is alert and orientated. HEENT: Normocephalic, atraumatic. Extraocular eye muscles are intact. Mucous membranes are moist. NECK: Without adenopathy or JVD. EXTREMITIES: Upper extremity strength judged to be 5/5 for all major muscle groups. She is without significant scoliosis, kyphosis or lordosis. She has some warmth to her right knee today. No signs of swelling and a well-healed surgical scar. She walks with a slightly antalgic gait. Her lower extremity strength judged to be 5/5. IMPRESSION: 1. Recent right knee replacement. 2. History of osteoarthritis in her hips bilaterally, hip replaced. 3. History of immunoglobulin status. 4. Chronic pain. 5. Complex medical management under terms of written opioid agreement. We reviewed the fact that opiate medications are being used to provide analgesia adequate to support activities of daily living, not attempting to achieve a specific pain score on the 0-10 Visual Analog Scale. The current opiate medications are providing sufficient analgesia to allow the patient to participate in activities of daily living. The patient is not exhibiting any aberrant behavior suggestive of drug diversion. The patient is not having any adverse reactions to medications. The patient is not suffering from daytime somnolence or mental acuity changes. The patient is managing opiate-induced constipation with appropriate eray-vgc-ilxdjfy agents and dietary considerations. The patient was counseled on concern for caution with operating a motor vehicle while using opiate medications. A physical exam was performed and the patient's functional status was evaluated. All patients with back pain were advised against the bed rest greater than 4 days and were advised to return to normal activities. Pain score assessment was noted and the treatment plan was reviewed with the patient. All current medications, both prescribed and OTC were reviewed and reconciled on the electronic medical record. Tobacco screening was accomplished and smoking cessation was advised when indicated. BMI was noted and diet/exercise modification was recommended for all patients following outside normal parameters. I reviewed with the patient today their responsibilities to safeguard prescription medications, reviewed their responsibility to utilize medications only as prescribed by the physician. They are to seek and receive pain [address] [address] PAIN MANAGEMENT CONSULTATION Name: JEAN MARIE CH Room #: REG JARAD Ma#: [id number] Admission: 06/22/19 Attend Phys: Qi Bhatti Discharge: Date of : 48 Report #: [id number] medications only from 1 physician group ( [facility]). They are to use 1 pharmacy and keep the clinic informed if they change pharmacies. Their responsibilities include making followup visits in a timely fashion and to avoid abrupt discontinuation of medication usage. Their responsibilities further include bringing their medications (bottles from the pharmacy with residual pills) to the visit for possible confirmation of pill counts and the patient understands it is their responsibility to submit to random drug screens to ensure both that the medications prescribed are present, and that no other controlled substances are present. All prescriptions provided today were generated electronically. PLAN: 1. We discussed treatment options with the patient today. The patient feels like she is recovering quite well from her right knee replacement. Her pain is well controlled. She continues her therapy. We decided today to decrease her OxyContin back to the level that she was on prior to surgery and continue her short-acting at the current strength. Scripts given today for OxyContin 20 mg b.i.d. for today and 4-week release; oxycodone 10/325, #90 for today and 4-week release. 2. We discussed that at the next visit we will try to decrease her short-acting medications back to a level where she was previously before her surgery and then hopefully we will continue to wean down off of her medications very gradually. The patient is agreeable with this plan of care. 3. The patient was seen by Dr. Justus Jones who did collaborate care and see the patient as well today. <ELECTRONICALLY SIGNED> By: Qi Bhatti 06/26/19 1513 1116 1816 Qi Bhatti /nt
== END ==
LOC: PAIN 06-20 06:50
DX: Z76.0 Encounter for issue of repeat prescription (principal); G89.29 Other chronic pain; M25.561 Pain in right knee; M25.562 Pain in left knee; I10 Essential (primary) hypertension; Z96.651 Presence of right artificial knee joint; Z79.891 Long term (current) use of opiate analgesic; Z79.899 Other long term (current) drug therapy; Z96.649 Presence of unspecified artificial hip joint; Z88.5 Allergy status to narcotic agent

== ENCOUNTER → 2019-10-12 | Outpatient (CLI) | payer OTHER, MEDICARE ==
[~2019-10-12] VITALS: Ht 160 cm; Wt 65.2 kg
[~2019-10-12] MED LIST changes: +LIPITOR 40 MG T40 M1 PO; +NORVASC 2.5 MG2.5 M1 PO
[2019-10-12 08:12] VITALS: BP 151/99
--- NOTE | 2019-10-12 08:24 | NUR ---
Pain Clinic Assessment: 1. History of Osteoarthritis: NECK HIPS AND KNEES History of Rheumatoid Arthritis: Not Applicable 2. Height: 5 ft. 3 in. 160.0 cm. Weight: 143.8 lb. oz. 65.227 kg. Patient's BMI: 25.5 3. Vital Signs: BP: 151/99 Pulse: 106 Resp: 20 Temp: 02 Sat: 97 ECG Mon: 4. Pain Intensity: 4-6 5. Fall Risk: Dizziness: N Needs help standing or walking: N Fallen in the last 3 months: N Fall risk comments: R/T KNEE-OCCASIONALLY 6. Patient on Blood Thinner: None 7. History of Hypertension: Y 8. Opioid Therapy greater than 6 weeks: Y Opiate Contract Signed: 04/01/16 9. Risk Assessment Tool Provided: LOW RISK 10. Functional Assessment Tool: 11. Recreational Drug Use: Never Drug Type: Tobacco Use: Never Smoker Tobacco Type: Amount or Packs/day: How Many Years: Alcohol Use: No Frequency: Quant:
--- NOTE | 2019-10-24 09:02 | HPC ---
[facility] [place] [address] PAIN MANAGEMENT CONSULTATION Name: JEAN MARIE CH Room #: REG SHILPAKatie Hawkins.#: [id number] Admission: 10/12/19 Attend Phys: Kandace Jones MD Discharge: Date of : 48 Report #: [id number] THIS REPORT FOR: cc: Robbie Dill MD, Bernard O. MD Brown,Kandace Mckoy MD ~ CC: Robbie Jones DATE OF SERVICE: 10/12/2019 CHIEF COMPLAINT: The medicines are helping and I would like to start to decrease the pain medicine. HISTORY: The patient is a 69-year-old female who has been followed in the pain clinic. As you may recall, she has been treated for chronic pain. She has had knee replacements as well as hip replacements. Overall, things have continued to improve. She is having some continued pain and discomfort. At this point, she is trying to remain as active as possible. She feels that her medications, give her the best opportunity to increase the range of motion and strengthening in this post-surgical period. She has not had any complications from the medication. She has returned today with the hopes of continuing with her medications, but would like to decrease her medications somewhat. ALLERGIES: MORPHINE. CURRENT MEDICATIONS: Oxycodone 10 mg one p.o. q. 4-6 hours p.r.n., OxyContin 20 mg in the morning, 40 mg at night, aspirin 81 mg, meloxicam 15 mg, Synthroid 100 mcg, stool softener, irbesartan 150 mg, spironolactone 100 mg, Lunesta 30 mg, Requip 1 mg at bedtime, [place] 15 mg daily, and [place]uet 10/20 mg daily. PAIN CLINIC ASSESSMENT AND PQRS: 1. The patient has some osteoarthritic changes in her neck as well as in her hips and knees. The patient is not being treated for rheumatoid arthritis. 2. Height 5 feet 3 inches, weight 143 pounds, BMI 25.5. 3. Vital signs: Blood pressure 151/99, pulse is 106, respiratory rate 20, room air saturation 97%. 4. Pain intensity 4-6/10. 5. Fall history: The patient has not fallen. Notes some discomfort in the right knee on occasion. 6. Blood thinner. The patient is not on a blood thinning medication. 7. Hypertension. The patient is being treated for hypertension. 8. Opioids greater than 6 weeks. The patient received medication from one source, the pain clinic. 9. Risk assessment tool, low for opioid use. 10. Functional assessment tool 40/70. [address] [address] PAIN MANAGEMENT CONSULTATION Name: JEAN MARIE CH Derrell [facility] [id number] Admission: 10/12/19 Attend Phys: Kandace Jones MD Discharge: Date of : 48 Report #: [id number] 11. Recreational drugs: The patient denies. 12. Tobacco: The patient has never smoked. 13. Alcohol. The patient denies frequent use of alcoholic beverages. PHYSICAL EXAMINATION: GENERAL: The patient is a well-developed, well-nourished white female. Appears her stated age. She is alert and oriented x 3. Her affect is appropriate. Speech is fluent. HEENT: Normocephalic, atraumatic. Extraocular eye muscles intact. Sclerae nonicteric. Mucous membranes are moist. NECK: Without adenopathy or JVD. HEART: Regular rate. MUSCULOSKELETAL: Upper extremity muscle strength judged to be 5-/5 for the major muscle groups in the upper extremity. The patient is without significant scoliosis or kyphosis. The patient has pain and discomfort in the low back area and down into the right knee. IMPRESSION: 1. Status post right total knee replacement. 2. History of bilateral knee replacements. 3. 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 4. Chronic pain treated with opioid management, status post right knee replacement. 5. Complex medical management using opioids. 6. Risk assessment tool, low for opioid use. RECOMMENDATIONS: We discussed treatment options with the patient. At this juncture, we will continue with her opioid medications. We explained to the patient that we will continue to decrease her medications in a slow and timely manner. Hopefully, she will have less problems as a result of withdrawal. She is not being showing any signs of withdrawal. She would like to decrease the OxyContin by 10 mg. We will have the patient decrease the Percocet by 10 tablets, instead of 90 tablets over 1 month period the patient will take 75. She will take these p.r.n. as needed. She will also continue with oxycodone ER 20 mg b.i.d. She will call us if she has any concerns with her medications. Overall, things are going reasonably well. She keeps her medications in a guarded area. We would like to thank you for letting us participate in her care. Hope she will continue to do well. She will continue to monitor her GI tract given that she has taken nonsteroidal anti-inflammatory medications. <ELECTRONICALLY SIGNED> By: Kandace Jones MD 10/24/19 0902 0026 06 Kandace Jones MD /nt
== END ==
LOC: PAIN 06:44
DX: G89.29 Other chronic pain (principal); D80.3 Selective deficiency of immunoglobulin G [IgG] subclasses; I10 Essential (primary) hypertension; Z96.653 Presence of artificial knee joint, bilateral; Z96.643 Presence of artificial hip joint, bilateral; Z79.899 Other long term (current) drug therapy; Z79.891 Long term (current) use of opiate analgesic

== ENCOUNTER → 2020-01-09 | Outpatient (CLI) | payer OTHER, MEDICARE ==
--- NOTE | 2020-01-09 12:33 | HPC ---
[facility] [address] [place] [address] PAIN MANAGEMENT CONSULTATION Name: JEAN MARIE CH Room #: REG [facility].#: [id number] Admission: 01/09/20 Attend Phys: Qi Bhatti Discharge: Date of : 48 Report #: [id number] THIS REPORT FOR: cc: Robbie Dill MD, Bernard O. MD Hocker, Amanda CNS ~ CC: Fernando Jones MD DATE OF SERVICE: 01/09/2020 This is a telemedicine appointment due to the patient being immunocompromised during the COVID crisis. The patient has consented to this audiovisual telemedicine appointment from 0901 hours to 0917 hours. CHIEF COMPLAINT: Right knee pain. HISTORY OF PRESENT ILLNESS: As you know, this is a very pleasant 69-year-old female who I am speaking with via the telephone audiovisual today for a telemedicine appointment due to the COVID virus. She is immunocompromised and has also cardiac issues, so she does not want to leave her house during this time. She reports that she has been trying to walk by herself on a daily basis during this time, but otherwise she has been at home the entire quarantine outbreak. The patient today reports the pain score at 2/10 in the morning. She states that her pain in her right knee does elevate and increase as the day progresses and by evening it is a 6/10. She feels that straightening her leg as well as some activities increase her pain. It is an aching discomfort. She reports that standing and walking do increase it as well as weather changes, but she is trying to be active. She states that she has gained 10 pounds since last fall and she would like to be able to lose this weight, but feels that her pain is keeping her from this, though she has been decreasing her pain medicines slowly since we have last seen her. The patient states she is going to see her orthopedic doctor soon for this increased pain in her right knee. She has had her surgery last March. She knows that it should take time to heal, but would like to make sure nothing is wrong since she is having increased pain, though she reports no swelling. Today, she would also like to decrease her short-acting medications from 75 pills a month to 60 pills a month. ALLERGIES: MORPHINE. CURRENT LIST OF MEDICATIONS: Atorvastatin, amlodipine, oxycodone 10/325 p.r.n., OxyContin 20 mg b.i.d., levothyroxine, Colace, irbesartan, spironolactone, Nucynta, Requip and [place] Thyroid. RS: [place] [address] PAIN MANAGEMENT CONSULTATION Name: JEAN MARIE CH Room #: REG JARAD Ma#: [id number] Admission: 01/09/20 Attend Phys: Qi Bhatti Discharge: Date of : 48 Report #: [id number] 1. She has arthritic changes in her neck as well as her hips and knees. She is not being treated for rheumatoid arthritis. 2. Height, weight and vital signs were deferred, though the patient states she has increased 10 pounds. Pain score is 2/10-6/10. 3. Fall risk. Denies dizziness, does not need help walking or standing, has not fallen in the last 3 months per her report. She is not on any blood thinners, but does take medicine for hypertension. Opioid therapy is greater than 6 weeks; therefore, an opioid signed contract is on the chart. Risk assessment is low. Functional assessment is 40/70. 4. Recreational drug use, she denies. She is not a smoker and does not drink alcohol. According to the prescription monitoring system, the patient is filling appropriately for her medications. She is due to fill her opioid medications today. According to the CDC guidelines, her morphine mEq with her new dose will be 90 MME. PHYSICAL EXAMINATION: This is a review of systems: This is alert and orientated 69-year-old female who is answering all my questions appropriately. She reports that she is stressed today due to COVID-19. She is not having any visual or hearing issues. She denies any swelling in her right knee, though she has pain with ambulation and straightening her leg. The patient denies any hip pain. ASSESSMENT: 1. Status post right total knee replacement, increased pain. 2. History of bilateral knee replacement. 3. History of low immunoglobulin status with Staphylococcus aureus infections in the past. 4. Chronic pain, being treated with opioid medications under agreement. 5. Complex medical management. We reviewed the fact that opiate medications are being used to provide analgesia adequate to support activities of daily living, not attempting to achieve a specific pain score on the 0-10 Visual Analog Scale. The current opiate medications are providing sufficient analgesia to allow the patient to participate in activities of daily living. The patient is not exhibiting any aberrant behavior suggestive of drug diversion. The patient is not having any adverse reactions to medications. The patient is not suffering from daytime somnolence or mental acuity changes. The patient is managing opiate-induced constipation with appropriate axhk-dlg-oalhapu agents and dietary considerations. The patient was counseled on concern for caution with operating a motor vehicle while using opiate medications. PLAN: 1. We discussed treatment options with the patient today. At this juncture, [address] [address] PAIN MANAGEMENT CONSULTATION Name: JEAN MARIE CH Room #: REG [facility]#: [id number] Admission: 01/09/20 Attend Phys: Qi Bhatti Discharge: Date of : 48 Report #: [id number] she feels that the opiate medications are beneficial, but would like to continue to decrease. We discussed continuing on her longacting of OxyContin 20 mg for the next 2 months, then slowly decreasing it to 15 mg b.i.d. or 10 mg b.i.d. depending on the patient's current pain situation when she does come for her next appointment. The patient is agreeable with this. 2. Today, we will decrease her Percocet 10/325 from 75 pills a month to 60. The patient requested this lowering of dose. 3. The patient does complain of some slight itchiness with her Percocet, which she had not experienced in the past. I encouraged her to call her pharmacy to determine what injection moulding machine operator they are using for her breakthrough pain medicine. It could be a slight variation, which is causing her itching. The patient states she does not need to take any medicine to help relieve this discomfort. 4. The patient denies any daytime somnolence or constipation as a result of her opioid medications. The patient discussed via telemedicine in collaboration with Dr. Justus Jones. The patient will return in 2 months. Medication sent electronically by Dr. Ean Jones for 2 months. <ELECTRONICALLY SIGNED> By: Qi Bhatti 01/09/20 1233 0956 Qi lópez
== END ==
LOC: PAIN 06:49 → TELEPC 06:49 → PAIN 12:03
DX: M25.561 Pain in right knee (principal); G89.29 Other chronic pain; Z79.899 Other long term (current) drug therapy; Z96.653 Presence of artificial knee joint, bilateral; Z86.2 Personal history of diseases of the blood and blood-forming organs and certain disorders involving the immune mechanism

== ENCOUNTER → 2020-03-05 | Outpatient (CLI) | payer OTHER, MEDICARE ==
[~2020-03-05] VITALS: Ht 160 cm; Wt 63.3 kg
[2020-03-05 08:21] VITALS: BP 159/96
--- NOTE | 2020-03-05 08:26 | NUR ---
Pain Clinic Assessment: 1. History of Osteoarthritis: NECK HIPS AND KNEES History of Rheumatoid Arthritis: Not Applicable 2. Height: 5 ft. 3 in. 160.0 cm. Weight: 139.6 lb. oz. 63.322 kg. Patient's BMI: 24.7 3. Vital Signs: BP: 159/96 Pulse: 74 Resp: 16 Temp: 02 Sat: 98 ECG Mon: 4. Pain Intensity: 2 5. Fall Risk: Dizziness: N Needs help standing or walking: N Fallen in the last 3 months: N Fall risk comments: R/T KNEE-OCCASIONALLY 6. Patient on Blood Thinner: None 7. History of Hypertension: Y 8. Opioid Therapy greater than 6 weeks: Y Opiate Contract Signed: 04/01/16 9. Risk Assessment Tool Provided: LOW RISK 10. Functional Assessment Tool: 11. Recreational Drug Use: Never Drug Type: Tobacco Use: Never Smoker Tobacco Type: Amount or Packs/day: How Many Years: Alcohol Use: No Frequency: Quant:
--- NOTE | 2020-03-05 12:14 | HPC ---
[facility] [place] [address] PAIN MANAGEMENT CONSULTATION Name: JEAN MARIE CH Room #: REG JARAD Hawkins.#: [id number] Admission: 03/05/20 Attend Phys: Qi Bhatti Discharge: Date of : 48 Report #: [id number] THIS REPORT FOR: cc: Robbie Dill MD, Bernard O. MD Hocker, Amanda CNS ~ CC: Fernando Jones MD DATE OF SERVICE: 03/05/2020 CHIEF COMPLAINT: Right knee pain and cervical pain. HISTORY OF PRESENT ILLNESS: This is a very pleasant 69-year-old female who is well known to us in the clinic. She is here today to discuss her opioid medications. She has been trying to wean down on her medications since she had her right knee replaced last March. She has been quite successful. She feels like she is ready to decrease again. Her pain score today is 2/10, taking OxyContin 20mg twice a day and oxycodone 10/325 p.r.n. She reports that she has been walking 2 miles a day and does take her pain medicine prior to walking. This is an aching feeling but she believes that the activity has been helpful in decreasing some of her pain as well as occasionally using heat to her knee. She does have ongoing neck issues that she has had surgery in the past, but at this time, she is not complaining of pain in her neck. ALLERGIES: MORPHINE. CURRENT LIST OF MEDICATIONS: Oxycodone 10/325 b.i.d. p.r.n., OxyContin 20 mg b.i.d., atorvastatin, amlodipine, aspirin, tretinoin, levothyroxine, Colace, irbesartan, spironolactone, Lunesta and Requip. PQRS: 1. She has osteoarthritis in her hips, knees and neck. Denies rheumatoid arthritis. 2. Height is 5 feet 3 inches, weight is 139, which is a decrease of 4 pounds since her last visit and her BMI is 24. 3. Vital signs, blood pressure 159/96, pulse is 74, respirations 16, and oxygen sat is 98. 4. Pain score is 2/10. 5. Denies dizziness, does not need help walking or standing, has not fallen in the last 3 months. 6. The patient is not on any blood thinner, but does take medicine for hypertension. 7. Opiate therapy is greater than 6 weeks; therefore, an opioid signed contract is on the chart. Risk assessment tool is low. Functional assessment is 40/70. 8. Recreational drug use, she denies. She is not [place] [address] PAIN MANAGEMENT CONSULTATION Name: JEAN MARIE CH Derrell Room #: REG JARAD Ma#: [id number] Admission: 03/05/20 Attend Phys: Qi Bhatti Discharge: Date of : 48 Report #: [id number] alcohol. According to the prescription monitoring system, the patient is filling appropriately for her medications. She is due to fill these medications today. Her morphine mEq is 90 MME but we will be decreasing this today to 70 MME. PHYSICAL EXAMINATION: GENERAL: This is a well-developed, well-nourished, well-hydrated 69-year-old female who is alert and orientated, rating her pain score at 2/10 today. Her affect is appropriate. HEENT: Normocephalic, atraumatic. Extraocular eye muscles are intact. Mucous membranes are moist. She is wearing a mask. NECK: Without adenopathy or JVD. She does have well-healed scar in her cervical region. MUSCULOSKELETAL: Upper and lower extremity strength judged to be 5/5 with good sensation. The patient is without significant scoliosis, kyphosis or lordosis. She has tenderness in her right knee that does increase with ambulation. IMPRESSION: 1. Status post total knee replacement. 2. History of bilateral knee pain. 3. History of low immunoglobulin status with previous Staph infections. 4. Chronic pain treated with opioid medications. 5. Complex medical management. 6. Cervical radiculopathy. PLAN: 1. We discussed treatment options with the patient today. We have been slowly weaning her off her long-acting opioid medications. She believes that she is ready to decrease again. She feels that she is doing quite well and has been 11 months since her total knee replacement. She is exercising more and feels that her knee is finally feeling better, though at times she does have pain, especially with activities. We had discussed weaning her at this visit to OxyContin 10-15 mg twice a day. The patient believes that she will be able to go to 10 mg twice a day and continue her short acting . We will have Dr. Justus Jones write these prescriptions and send them electronically for OxyContin 10 b.i.d., #60 for today and 4 weeks supply as well as her short acting. 2. We did discuss tapering at the next visit in 2 months if she feels like she is able. We will either decrease her OxyContin to 10 mg once a day, the patient taking in the morning and do that for 1 month, then decrease her off of her OxyContin, but increase her oxycodone to 10/325 three times a day and see how she does with this medication. 3. We did discuss the patient's occasional low back pain. She does have spinal stenosis in her lumbar spine as well as in her cervical spine, which she has had previous surgery for. I did explain to her that if her back becomes problematic [facility] [address] [place] [address] PAIN MANAGEMENT CONSULTATION Name: JEAN MARIE CH Derrell Room #: REG JARAD Ma#: [id number] Admission: 03/05/20 Attend Phys: Qi Bhatti Discharge: Date of : 48 Report #: [id number] in the future, Dr. Jones could possibly do an epidural steroid injection, but we will revisit this when needed. 4. The patient states that she is having less constipation or daytime somnolence from the medications. She feels like she is more clear-headed since she has decreased her opioid use. 5. The patient is seen in collaboration with Dr. Justus Jones. The patient will return in 2 months. <ELECTRONICALLY SIGNED> By: Qi Bhatti 03/05/20 1214 0854 [id number] Qi Bhatti /nt
== END ==
LOC: PAIN 06:44 → TELEPC 08:52 → PAIN 09:33
PROVIDERS: ATTEND Clinical Nurse Specialist Adult Health
DX: M54.12 Radiculopathy, cervical region (principal); G89.29 Other chronic pain; M25.561 Pain in right knee; Z79.899 Other long term (current) drug therapy; Z79.891 Long term (current) use of opiate analgesic

== ENCOUNTER → 2020-04-30 | Outpatient (CLI) | payer OTHER, MEDICARE ==
[~2020-04-30] VITALS: Ht 160 cm; Wt 63.3 kg
[2020-04-30 08:53] VITALS: BP 144/96
--- NOTE | 2020-04-30 08:55 | NUR ---
Pain Clinic Assessment: 1. History of Osteoarthritis: NECK HIPS AND KNEES History of Rheumatoid Arthritis: Not Applicable 2. Height: 5 ft. 3 in. 160.0 cm. Weight: 139.6 lb. oz. 63.322 kg. Patient's BMI: 24.7 3. Vital Signs: BP: 144/96 Pulse: 77 Resp: 18 Temp: 02 Sat: 97 ECG Mon: 4. Pain Intensity: 2 5. Fall Risk: Dizziness: Needs help standing or walking: Fallen in the last 3 months: Fall risk comments: R/T KNEE-OCCASIONALLY 6. Patient on Blood Thinner: None 7. History of Hypertension: Y 8. Opioid Therapy greater than 6 weeks: Y Opiate Contract Signed: 04/01/16 9. Risk Assessment Tool Provided: LOW RISK 10. Functional Assessment Tool: 11. Recreational Drug Use: Never Drug Type: Tobacco Use: Never Smoker Tobacco Type: Amount or Packs/day: How Many Years: Alcohol Use: No Frequency: Quant:
--- NOTE | 2020-05-23 08:22 | HPC ---
[facility] [place] [address] [place] [address] PAIN MANAGEMENT CONSULTATION Name: JEAN MARIE CH Room #: REG JARAD LilianaCharlie.#: [id number] Admission: 04/30/20 Attend Phys: Kandace Jones MD Discharge: Date of : 48 Report #: [id number] THIS REPORT FOR: cc: Robbie Dill MD, Bernard O. MD Brown,Knadace Mckoy MD ~ CC: Robbie Jones DATE OF SERVICE: 04/30/2020 CHIEF COMPLAINT: Right knee pain and cervical pain. HISTORY: The patient is a 69-year-old female who has been followed in the pain clinic because of chronic pain. She has had knee replacements. She returns today indicating that her right knee continues to improve. She feels that her current medication regimen is helpful. She feels that it is helping to make her rehabilitation easier. She feels her medications are working reasonably well and would like to continue it at her current level. ALLERGIES: MORPHINE. CURRENT MEDICATIONS: Oxycodone 10/325 one p.o. b.i.d., OxyContin 20 mg b.i.d., Lipitor, amlodipine, aspirin, tretinoin, levothyroxine, Colace, irbesartan, spironolactone, Lunesta, Requip. PAIN CLINIC ASSESSMENT AND PQRS: 1. The patient has some osteoarthritic changes in her neck as well as her hips and knees. She is not being treated for rheumatoid arthritis. 2. Height 5 feet 3 inches, weight 139 pounds, BMI is 24. 3. Vital signs: Blood pressure 144/96, pulse 77, respiratory rate 18, room air saturation is 97%. 4. Pain intensity /10. 5. Fall history: The patient has some pain in the right knee. 6. Blood thinner. The patient is not on a blood thinning medication. 7. Hypertension. The patient is being treated for hypertension. 8. Opioids greater than 6 weeks. The patient receives medication from her primary physician. 9. Risk assessment tool, low for opioid use. 10. Functional assessment tool 40/70. 11. Recreational drug use. The patient denies. 12. Tobacco: The patient has never smoked. 13. Alcohol: The patient denies use of alcoholic beverages. PHYSICAL EXAMINATION: GENERAL: The patient is a well-developed, well-nourished white female. [facility] [address] [place] [address] PAIN MANAGEMENT CONSULTATION Name: JEAN MARIE CH Room #: REG SHILPA Anil#: [id number] Admission: 04/30/20 Attend Phys: Kandace Jones MD Discharge: Date of : 48 Report #: [id number] her stated age. She is alert and oriented x 3. Her affect is appropriate. Speech is fluent. HEENT: Normocephalic, atraumatic. Extraocular eye muscles intact. Sclerae nonicteric. Mucous membranes are moist. The patient is wearing a facial covering. HEART: Regular rate. LUNGS: Clear. MUSCULOSKELETAL: Upper extremity muscle strength judged to be 5-/5 for the major muscle groups in the upper extremity. The patient has some pain and discomfort in the low back area as well as in the right knee. IMPRESSION: 1. Status post right total knee replacement. 2. History of bilateral knee replacements. 3. History of low immunoglobulin status with history of Staphylococcus infections in the past. 4. Chronic pain treated with opioid medications. 5. Complex medical management using opioids. 6. Risk assessment tool, low for opioid use. RECOMMENDATIONS: We discussed treatment options with the patient. We will continue with her current use of opioids to help with her recovery. A script for her medications of OxyContin 10 mg one p.o. q. 4-6 hours has been provided. The patient will also continue with OxyContin 20 mg in the morning and 10 mg OxyContin extended release b.i.d. She will also continue with Percocet 10/325 b.i.d. We would like to thank you for letting us participate in her care. She will call us if she has any concerns. We hope she continues to improve. <ELECTRONICALLY SIGNED> By: Kandace Jones MD 05/23/20 0822 1040 [id number] Kandace Jones MD /nt
== END ==
LOC: PAIN 06:50
PROVIDERS: ATTEND Anesthesiology Pain Medicine
DX: M25.561 Pain in right knee (principal); M54.2 Cervicalgia; F11.20 Opioid dependence, uncomplicated; Z96.651 Presence of right artificial knee joint; Z87.39 Personal history of other diseases of the musculoskeletal system and connective tissue; Z79.899 Other long term (current) drug therapy

== ENCOUNTER → 2020-06-27 | Outpatient (CLI) | payer OTHER, MEDICARE ==
[~2020-06-27] VITALS: Ht 160 cm; Wt 66.0 kg
[2020-06-27 10:21] VITALS: BP 154/110
--- NOTE | 2020-06-27 10:29 | NUR ---
Pain Clinic Assessment: 1. History of Osteoarthritis: NECK HIPS AND KNEES History of Rheumatoid Arthritis: Not Applicable 2. Height: 5 ft. 3 in. 160.0 cm. Weight: 145.6 lb. oz. 66.044 kg. Patient's BMI: 25.8 3. Vital Signs: BP: 154/110 Pulse: 80 Resp: 16 Temp: 02 Sat: 98 ECG Mon: 4. Pain Intensity: 2 with meds, 7 without 5. Fall Risk: Dizziness: N Needs help standing or walking: N Fallen in the last 3 months: N Fall risk comments: R/T KNEE-OCCASIONALLY 6. Patient on Blood Thinner: None 7. History of Hypertension: Y 8. Opioid Therapy greater than 6 weeks: Y Opiate Contract Signed: 04/01/16 9. Risk Assessment Tool Provided: LOW RISK 10. Functional Assessment Tool: 11. Recreational Drug Use: Never Drug Type: Tobacco Use: Never Smoker Tobacco Type: Amount or Packs/day: How Many Years: Alcohol Use: No Frequency: Quant:
--- NOTE | 2020-06-30 08:55 | HPC ---
[facility] [address] [place] [address] PAIN MANAGEMENT CONSULTATION Name: JEAN MARIE CH Room #: REG JARAD Ma#: [id number] Admission: 06/27/20 Attend Phys: Qi Bhatti Discharge: Date of : 48 Report #: [id number] CC: Qi Jones MD DATE OF SERVICE: 06/27/2020 CHIEF COMPLAINT: Right knee pain and cervical pain. HISTORY OF PRESENT ILLNESS: This is a very pleasant 70-year-old female, who is well known to the pain clinic. Over the past year, we have been slowly tapering her medications. The patient states she has been doing quite well on this tapering of her opioid medications since her total right knee replacement last year, though she would like to remain at her OxyContin 10 mg twice a day for a month or two longer to stabilize her pain and then would like to decrease again at her next visit. Today, the patient is reporting a pain score of 2/10 with her medications and 7/10 when it is due to be taken. States that it is ongoing in her low back and occasionally in her neck, worse with activity and prolonged standing and walking, though she does report she has been walking about 2 hours a day and has found this very beneficial in helping with her pain as well as her emotional issues since being at home due to COVID. She states that she does not suffer from constipation or daytime somnolence as a result of her medication and would like refills today. ALLERGIES: MORPHINE. CURRENT LIST OF MEDICATIONS: Percocet 10/325 b.i.d., OxyContin 10 mg b.i.d., atorvastatin, Lipitor, aspirin, tretinoin cream, levothyroxine, Colace, spironolactone, irbesartan, Lunesta, and Requip. PQRS: 1. She does have osteoarthritis of her hips, knees and cervical spine. Denies any rheumatoid arthritis. 2. Height is 5 feet 3 inches, weight is 146, BMI is 25. 3. Vital signs 154/110, pulse is 80, respirations 16, oxygen sat is 98. 4. Pain score is 2/10 with medications, 7/10 without. 5. Denies dizziness, does not need help walking or standing, has not fallen in the last 3 months. 6. The patient is not on any blood thinners, but does take medicine for hypertension. 7. Opioid therapy is greater than 6 weeks; therefore, an opioid signed contract is on the chart. 8. Risk assessment is low. Functional assessment is 40/70. 9. Recreational drug use, she denies. She is not a smoker and does not drink alcohol. According to the prescription monitoring system, the patient is due to fill her medications, filling them in a timely fashion. Her morphine milliequivalent is 60 MME per day. PHYSICAL EXAMINATION: GENERAL: This is alert and orientated, well-developed, well-nourished 70-year-old female, who appears her stated age, placing her current pain score at 2-7/10 today. HEENT: Normocephalic, atraumatic. Extraocular eye muscles are intact. Mucous membranes are moist. She is wearing a mask. NECK: Without adenopathy or JVD. She does have a well-healed surgical scar in her cervical spine with tenderness present in her paraspinal musculature. MUSCULOSKELETAL: The patient is without significant scoliosis, kyphosis or lordosis. Her upper and lower extremity strength is symmetrical at 5/5. She has tenderness in her right knee that increases with ambulation. We reviewed the fact that opiate medications are being used to provide analgesia adequate to support activities of daily living, not attempting to achieve a specific pain score on the 0-10 Visual Analog Scale. The current opiate medications are providing sufficient analgesia to allow the patient to participate in activities of daily living. The patient is not exhibiting any aberrant behavior suggestive of drug diversion. The patient is not having any adverse reactions to medications. The patient is not suffering from daytime somnolence or mental acuity changes. The patient is managing opiate-induced constipation with appropriate [id number] agents and dietary considerations. The patient was counseled on concern for caution with operating a motor vehicle while using opiate medications. PLAN: 1. We discussed treatment options with the patient today. The patient would like to continue at her current level of opioid medications through the holidays and to stabilize her pain, then she would like to continue to decrease. We did discuss at her next decrease we have two options, one to take away her OxyContin altogether and increase her short-acting for a few months, then slowly decreasing her breakthrough pain medicine or decrease 1 OxyContin a day, taking it in the morning when she has more pain and then slowly decreasing that tablet. We will discuss this further at her next visit, but our plan is to taper her off her OxyContin altogether and continue on just short-acting medications, which the patient is agreeable. 2. Scripts sent today by Dr. Jones for her OxyContin 10 mg b.i.d., #60 with a fill for today and 4 weeks as well as her oxycodone 10/325, #60. At the next visit, we will collect a random drug screen on this patient as well. The patient is seen today in collaboration with Dr. Jones. <ELECTRONICALLY SIGNED> By: Qi Bhatti 06/30/20 [id number] Qi Bhatti /nt
== END ==
LOC: PAIN 07:03
PROVIDERS: ATTEND Clinical Nurse Specialist Adult Health
DX: M25.561 Pain in right knee (principal); M54.2 Cervicalgia; Z79.891 Long term (current) use of opiate analgesic; Z79.899 Other long term (current) drug therapy; Z88.5 Allergy status to narcotic agent

== ENCOUNTER → 2020-08-20 | Outpatient (CLI) | payer OTHER, MEDICARE ==
--- NOTE | 2020-08-20 15:53 | HPC ---
[facility] [place] [address] PAIN MANAGEMENT CONSULTATION Name: JEAN MARIE CH Room #: REG JARAD Ma#: [id number] Admission: 08/20/20 Attend Phys: Qi Bhatti Discharge: Date of : 48 Report #: [id number] THIS REPORT FOR: cc: Robbie Dill MD, Bernard O. MD Hocker,Qi COLON ~ DATE OF SERVICE: 08/20/2020 CHIEF COMPLAINT: Right knee pain, cervical and lumbar pain. This is a very pleasant 70-year-old that I am speaking with via the audiovisual [facility] speaking with her from 9:35 to 9:55. She has consented for this Telemed appointment. HISTORY OF PRESENT ILLNESS: This is a very pleasant 70-year-old who I am speaking with for a refill of her opioid medications. Today, she is reporting to me that her pain has been slowly increasing, especially in her lower back. She has had lumbar surgery greater than 30 years ago. The past few months her pain has been significantly worse in this region and radiating down her legs. She also is having increasing cervical issues. The patient has not had surgery of her cervical spine. She has tried to prolong the surgery by having periodic epidural injections, which were beneficial and then continues on her opioid medications. Today, she is wondering if she may have a new MRI of her back to see if there are any changes since she is having increasing pain and discomfort. The patient reports today that she is not able to walk as she had several months ago without increasing pain. She also found that she has gained some weight. She believes this may be due to the fact of COVID and she is snacking more at home, though per our report in the chart she has gained 5 pounds since her last visit. She denies any somnolence or constipation issues of her medications. ALLERGIES: MORPHINE. CURRENT LIST OF MEDICATIONS: Oxycodone 10/325 b.i.d., OxyContin 10 mg b.i.d., atorvastatin, Lipitor, aspirin, tretinoin cream, levothyroxine, Colace, spironolactone, irbesartan, Lunesta and Requip. PQRS: 1. She has osteoarthritis of her hips, knees and spine. Denies any rheumatoid arthritis. 2. Height, weight and vital signs are deferred, though she reported a weight of 150. Pain score is 7/10 without meds and 2/10 with medications. 3. Denies dizziness. Does not need assistance with ambulation. Has not fallen in the last 3 months. 4. The patient is not on any blood thinners, but [place] [address] PAIN MANAGEMENT CONSULTATION Name: JEAN MARIE CH Room #: REG JARAD Ma#: [id number] Admission: 08/20/20 Attend Phys: Qi Bhatti Discharge: Date of : 48 Report #: [id number] hypertension. 5. Opioid therapy is greater than 6 weeks; therefore, an opioid signed contract is on the chart. Risk assessment is low. Functional assessment is 40/70. 6. Recreational drug use, she denies. She is not a smoker and does not drink alcohol. According to the prescription monitoring system, the patient is filling appropriately for her medications. She is due to fill these medications today. Physical exam is deferred. This is a review of systems. The patient is alert and orientated, well developed. She is slightly flushed in the face today due to a fever per her report of 101. She is walking with a slow gingerly antalgic gait throughout her house through our audiovisual Telemed today. She reports tenderness in her cervical spine as well as in her lower back that is radiating into her legs. This has been increasing since our last visit. We reviewed the fact that opiate medications are being used to provide analgesia adequate to support activities of daily living, not attempting to achieve a specific pain score on the 0-10 Visual Analog Scale. The current opiate medications are providing sufficient analgesia to allow the patient to participate in activities of daily living. The patient is not exhibiting any aberrant behavior suggestive of drug diversion. The patient is not having any adverse reactions to medications. The patient is not suffering from daytime somnolence or mental acuity changes. The patient is managing opiate-induced constipation with appropriate kwiq-iam-dwojbzg agents and dietary considerations. The patient was counseled on concern for caution with operating a motor vehicle while using opiate medications. IMPRESSION: 1. Status post right total knee replacement. 2. History of osteoarthritis in multiple joints. 3. 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 4. Chronic pain, being treated with opioid medications. 5. Cervical radiculopathy. 6. Lumbar radiculopathy post surgery. 7. Complex medical management utilizing written opioid medications. PLAN: 1. We discussed treatment options with the patient today. The patient is wondering if she may have a cervical and lumbar MRI. She believes she is having worsening symptoms. I believe it is warranted with her change in pathology and increasing pain to see if there are any significant changes in her back. Her previous cervical MRI was in 2014 and lumbar MRI has not been imaged for many years. We have no record of this MRI. She does have a previous fusion in the past. We will send an order for this without contrast to our scheduling [facility] [address] [place] [address] PAIN MANAGEMENT CONSULTATION Name: JEAN MARIE CH Room #: REG JARAD Ma#: [id number] Admission: 08/20/20 Attend Phys: Qi Bhatti Discharge: Date of : 48 Report #: [id number] department and the patient may schedule when she is able. The patient is experiencing severe body aches and fever of greater than 101 today. She reports she has no other COVID symptoms, but I have encouraged her to be tested. Her fever has been for 48 hours currently. We discussed where rapid testing may occur and encouraged her to go there today or tomorrow. 2. Dr. Jones will send electronically her OxyContin 10 mg b.i.d., #60 for today and 4-week supply and oxycodone 10/325, #60 for today and 4-week supply. We had discussed tapering these medications, but we will hold off awaiting the results of the MRI. These medication have been very beneficial in providing sufficient analgesia enabling her to be as active as able. 3. We did briefly discuss possible epidural steroid injections for her lumbar spine and encouraged her to make a followup appointment with Dr. Jones to discuss the findings of her MRIs and then possible injections. The patient is seen today in collaboration with Dr. Jones. <ELECTRONICALLY SIGNED> By: Qi Bhatti 08/20/20 [id number] iQ Bhatti /cristy
== END ==
LOC: PAIN 06:48 → TELEPC 06:48 → PAIN 12:16
PROVIDERS: ATTEND Clinical Nurse Specialist Adult Health
DX: M54.16 Radiculopathy, lumbar region (principal); M54.12 Radiculopathy, cervical region; Z96.651 Presence of right artificial knee joint; Z98.890 Other specified postprocedural states

== ENCOUNTER → 2020-09-10 | Outpatient (CLI) | payer OTHER, MEDICARE ==
[~2020-09-10] VITALS: Ht 160 cm; Wt 68.0 kg
[~2020-09-10] MED LIST changes: +HYSINGLA ER20 MG PO; +XTAMPZA ER18 MG PO
[2020-09-10 15:10] VITALS: BP 165/96
--- NOTE | 2020-09-10 15:41 | NUR ---
Pain Clinic Assessment: 1. History of Osteoarthritis: NECK HIPS AND KNEES History of Rheumatoid Arthritis: Not Applicable 2. Height: 5 ft. 3 in. 160.0 cm. Weight: 150.0 lb. oz. 68.040 kg. Patient's BMI: 26.6 3. Vital Signs: BP: 165/96 Pulse: 92 Resp: 16 Temp: 02 Sat: 96 ECG Mon: 4. Pain Intensity: 8 5. Fall Risk: Dizziness: Y Needs help standing or walking: N Fallen in the last 3 months: N Fall risk comments: R/T KNEE-OCCASIONALLY 6. Patient on Blood Thinner: None 7. History of Hypertension: Y 8. Opioid Therapy greater than 6 weeks: Y Opiate Contract Signed: 04/01/16 9. Risk Assessment Tool Provided: LOW RISK 10. Functional Assessment Tool: 11. Recreational Drug Use: Never Drug Type: Tobacco Use: Never Smoker Tobacco Type: Amount or Packs/day: How Many Years: Alcohol Use: No Frequency: Quant:
== END ==
LOC: PAIN 06:52
PROVIDERS: ATTEND Anesthesiology Pain Medicine
DX: M54.2 Cervicalgia (principal)

== ENCOUNTER → 2020-11-12 | Outpatient (CLI) | payer OTHER, MEDICARE ==
[~2020-11-12] VITALS: Ht 160 cm; Wt 66.2 kg
[2020-11-12 08:42] VITALS: BP 145/95
--- NOTE | 2020-11-12 08:45 | NUR ---
Pain Clinic Assessment: 1. History of Osteoarthritis: NECK HIPS AND KNEES History of Rheumatoid Arthritis: Not Applicable 2. Height: 5 ft. 3 in. 160.0 cm. Weight: 146.0 lb. oz. 66.225 kg. Patient's BMI: 25.9 3. Vital Signs: BP: 145/95 Pulse: 81 Resp: 16 Temp: 02 Sat: 96 ECG Mon: 4. Pain Intensity: 2 5. Fall Risk: Dizziness: N Needs help standing or walking: N Fallen in the last 3 months: N Fall risk comments: R/T KNEE-OCCASIONALLY 6. Patient on Blood Thinner: None 7. History of Hypertension: Y 8. Opioid Therapy greater than 6 weeks: Y Opiate Contract Signed: 04/01/16 9. Risk Assessment Tool Provided: LOW RISK 0 10. Functional Assessment Tool: 11. Recreational Drug Use: Never Drug Type: Tobacco Use: Never Smoker Tobacco Type: Amount or Packs/day: How Many Years: Alcohol Use: No Frequency: Quant:
== END ==
LOC: PAIN 06:39
PROVIDERS: ATTEND Anesthesiology Pain Medicine
DX: M54.12 Radiculopathy, cervical region (principal); G89.4 Chronic pain syndrome; Z79.891 Long term (current) use of opiate analgesic; Z96.643 Presence of artificial hip joint, bilateral; Z96.653 Presence of artificial knee joint, bilateral

== ENCOUNTER → 2021-01-09 | Outpatient (CLI) | payer OTHER, MEDICARE ==
[~2021-01-09] VITALS: Ht 160 cm; Wt 64.7 kg
[2021-01-09 13:35] VITALS: BP 145/89
--- NOTE | 2021-01-09 13:44 | NUR ---
Pain Clinic Assessment: 1. History of Osteoarthritis: NECK HIPS AND KNEES History of Rheumatoid Arthritis: Not Applicable 2. Height: 5 ft. 3 in. 160.0 cm. Weight: 142.6 lb. oz. 64.683 kg. Patient's BMI: 25.3 3. Vital Signs: BP: 145/89 Pulse: 85 Resp: 16 Temp: 02 Sat: 95 ECG Mon: 4. Pain Intensity: 1 TO 7 5. Fall Risk: Dizziness: N Needs help standing or walking: N Fallen in the last 3 months: N Fall risk comments: R/T KNEE-OCCASIONALLY 6. Patient on Blood Thinner: None 7. History of Hypertension: Y 8. Opioid Therapy greater than 6 weeks: Y Opiate Contract Signed: 04/01/16 9. Risk Assessment Tool Provided: LOW RISK 0 10. Functional Assessment Tool: 11. Recreational Drug Use: Never Drug Type: Tobacco Use: Never Smoker Tobacco Type: Amount or Packs/day: How Many Years: Alcohol Use: No Frequency: Quant:
== END ==
LOC: PAIN 07:07
PROVIDERS: ATTEND Anesthesiology Pain Medicine
DX: Z76.0 Encounter for issue of repeat prescription (principal); M54.12 Radiculopathy, cervical region; G89.29 Other chronic pain; Z96.641 Presence of right artificial hip joint; Z96.653 Presence of artificial knee joint, bilateral; Z79.899 Other long term (current) drug therapy; Z79.891 Long term (current) use of opiate analgesic

== ENCOUNTER → 2021-03-11 | Outpatient (CLI) | payer OTHER, MEDICARE ==
[~2021-03-11] VITALS: Ht 160 cm; Wt 63.3 kg
[2021-03-11 08:24] VITALS: BP 138/92
--- NOTE | 2021-03-11 08:47 | NUR ---
Pain Clinic Assessment: 1. History of Osteoarthritis: NECK HIPS AND KNEES History of Rheumatoid Arthritis: Not Applicable 2. Height: 5 ft. 3 in. 160.0 cm. Weight: 139.6 lb. oz. 63.322 kg. Patient's BMI: 24.7 3. Vital Signs: BP: 138/92 Pulse: 70 Resp: 14 Temp: 02 Sat: 97 ECG Mon: 4. Pain Intensity: 1 with meds, 7 5. Fall Risk: Dizziness: N Needs help standing or walking: N Fallen in the last 3 months: N Fall risk comments: R/T KNEE-OCCASIONALLY 6. Patient on Blood Thinner: None 7. History of Hypertension: Y 8. Opioid Therapy greater than 6 weeks: Y Opiate Contract Signed: 04/01/16 9. Risk Assessment Tool Provided: LOW RISK 0 10. Functional Assessment Tool: 11. Recreational Drug Use: Never Drug Type: Tobacco Use: Never Smoker Tobacco Type: Amount or Packs/day: How Many Years: Alcohol Use: No Frequency: Quant:
== END ==
LOC: PAIN 07:15
PROVIDERS: ATTEND Anesthesiology Pain Medicine
DX: M54.12 Radiculopathy, cervical region (principal); Z79.891 Long term (current) use of opiate analgesic; Z79.899 Other long term (current) drug therapy; Z96.653 Presence of artificial knee joint, bilateral; Z96.643 Presence of artificial hip joint, bilateral

== ENCOUNTER → 2021-05-06 | Outpatient (CLI) | payer OTHER, MEDICARE ==
[~2021-05-06] VITALS: Ht 160 cm; Wt 62.7 kg
[~2021-05-06] MED LIST changes: +VOLTAREN ARTHRI20 GM TOP
[2021-05-06 08:19] VITALS: BP 130/89
--- NOTE | 2021-05-06 08:26 | NUR ---
Pain Clinic Assessment: 1. History of Osteoarthritis: NECK HIPS AND KNEES History of Rheumatoid Arthritis: Not Applicable 2. Height: 5 ft. 3 in. 160.0 cm. Weight: 138.2 lb. oz. 62.687 kg. Patient's BMI: 24.5 3. Vital Signs: BP: 130/89 Pulse: 84 Resp: 16 Temp: 02 Sat: 100 ECG Mon: 4. Pain Intensity: 6 5. Fall Risk: Dizziness: N Needs help standing or walking: N Fallen in the last 3 months: N Fall risk comments: R/T KNEE-OCCASIONALLY 6. Patient on Blood Thinner: None 7. History of Hypertension: Y 8. Opioid Therapy greater than 6 weeks: Y Opiate Contract Signed: 04/01/16 9. Risk Assessment Tool Provided: LOW RISK 0 10. Functional Assessment Tool: 11. Recreational Drug Use: Never Drug Type: Tobacco Use: Never Smoker Tobacco Type: Amount or Packs/day: How Many Years: Alcohol Use: No Frequency: Quant:
== END | disposition home or self-care (01) ==
LOC: PAIN 04-22 09:47
PROVIDERS: ATTEND Anesthesiology Pain Medicine
DX: M25.512 Pain in left shoulder (principal); G89.4 Chronic pain syndrome; M79.18 Myalgia, other site; M50.10 Cervical disc disorder with radiculopathy, unspecified cervical region; I10 Essential (primary) hypertension; M19.90 Unspecified osteoarthritis, unspecified site; Z98.890 Other specified postprocedural states; Z79.899 Other long term (current) drug therapy; Z96.653 Presence of artificial knee joint, bilateral; Z96.641 Presence of right artificial hip joint; Z88.8 Allergy status to other drugs, medicaments and biological substances

== ENCOUNTER → 2021-07-03 | Outpatient (CLI) | payer OTHER, MEDICARE ==
[~2021-07-03] VITALS: Ht 160 cm; Wt 63.3 kg
[2021-07-03 10:05] VITALS: BP 161/88
--- NOTE | 2021-07-03 10:15 | NUR ---
Pain Clinic Assessment: 1. History of Osteoarthritis: NECK HIPS AND KNEES History of Rheumatoid Arthritis: Not Applicable 2. Height: 5 ft. 3 in. 160.0 cm. Weight: 139.6 lb. oz. 63.322 kg. Patient's BMI: 24.7 3. Vital Signs: BP: 161/88 Pulse: 66 Resp: 16 Temp: 02 Sat: 98 ECG Mon: 4. Pain Intensity: 5 5. Fall Risk: Dizziness: N Needs help standing or walking: N Fallen in the last 3 months: N Fall risk comments: NO CONCERNS 6. Patient on Blood Thinner: None 7. History of Hypertension: Y 8. Opioid Therapy greater than 6 weeks: Y Opiate Contract Signed: 04/01/16 9. Risk Assessment Tool Provided: LOW RISK 0 10. Functional Assessment Tool: 11. Recreational Drug Use: Never Drug Type: Tobacco Use: Never Smoker Tobacco Type: Amount or Packs/day: How Many Years: Alcohol Use: No Frequency: Quant:
== END ==
LOC: PAIN 07-01 07:10
PROVIDERS: ATTEND Anesthesiology Pain Medicine
DX: M47.22 Other spondylosis with radiculopathy, cervical region (principal); M48.02 Spinal stenosis, cervical region; I10 Essential (primary) hypertension; Z96.641 Presence of right artificial hip joint; Z96.653 Presence of artificial knee joint, bilateral; Z88.8 Allergy status to other drugs, medicaments and biological substances; Z79.899 Other long term (current) drug therapy

== ENCOUNTER → 2021-08-26 | Outpatient (CLI) | payer OTHER, MEDICARE ==
[~2021-08-26] VITALS: Ht 160 cm; Wt 64.9 kg
[~2021-08-26] MED LIST changes: +ARTHRITIS PAIN100 GM TOP
[2021-08-26 08:45] VITALS: BP 140/92
--- NOTE | 2021-08-26 09:19 | NUR ---
Pain Clinic Assessment: 1. History of Osteoarthritis: NECK HIPS AND KNEES History of Rheumatoid Arthritis: Not Applicable 2. Height: 5 ft. 3 in. 160.0 cm. Weight: 143.0 lb. oz. 64.864 kg. Patient's BMI: 25.3 3. Vital Signs: BP: 140/92 Pulse: 84 Resp: 16 Temp: 02 Sat: 98 ECG Mon: 4. Pain Intensity: 6-7 5. Fall Risk: Dizziness: N Needs help standing or walking: N Fallen in the last 3 months: N Fall risk comments: NO CONCERNS 6. Patient on Blood Thinner: None 7. History of Hypertension: Y 8. Opioid Therapy greater than 6 weeks: Y Opiate Contract Signed: 04/01/16 9. Risk Assessment Tool Provided: LOW RISK 0 10. Functional Assessment Tool: 11. Recreational Drug Use: Never Drug Type: Tobacco Use: Never Smoker Tobacco Type: Amount or Packs/day: How Many Years: Alcohol Use: No Frequency: Quant:
== END ==
LOC: PAIN 06:51
PROVIDERS: ATTEND Clinical Nurse Specialist Adult Health
DX: M54.12 Radiculopathy, cervical region (principal); M54.2 Cervicalgia; G89.29 Other chronic pain; Z96.641 Presence of right artificial hip joint; Z96.653 Presence of artificial knee joint, bilateral; Z88.8 Allergy status to other drugs, medicaments and biological substances; Z79.899 Other long term (current) drug therapy

== ENCOUNTER → 2021-10-16 | Outpatient (CLI) | payer OTHER, MEDICARE ==
[~2021-10-16] VITALS: Ht 160 cm; Wt 64.5 kg
[2021-10-16 10:22] VITALS: BP 132/87
--- NOTE | 2021-10-16 10:38 | NUR ---
Pain Clinic Assessment: 1. History of Osteoarthritis: NECK HIPS AND KNEES History of Rheumatoid Arthritis: Not Applicable 2. Height: 5 ft. 3 in. 160.0 cm. Weight: 142.2 lb. oz. 64.501 kg. Patient's BMI: 25.2 3. Vital Signs: BP: 132/87 Pulse: 76 Resp: 16 Temp: 02 Sat: 97 ECG Mon: 4. Pain Intensity: 2 5. Fall Risk: Dizziness: N Needs help standing or walking: N Fallen in the last 3 months: N Fall risk comments: NO CONCERNS 6. Patient on Blood Thinner: None 7. History of Hypertension: Y 8. Opioid Therapy greater than 6 weeks: Y Opiate Contract Signed: 04/01/16 9. Risk Assessment Tool Provided: LOW RISK 0 10. Functional Assessment Tool: 50/ 11. Recreational Drug Use: Never Drug Type: Tobacco Use: Never Smoker Tobacco Type: Amount or Packs/day: How Many Years: Alcohol Use: No Frequency: Quant:
== END ==
LOC: PAIN 09:09
PROVIDERS: ATTEND Anesthesiology Pain Medicine
DX: M16.0 Bilateral primary osteoarthritis of hip (principal); M17.0 Bilateral primary osteoarthritis of knee; M47.812 Spondylosis without myelopathy or radiculopathy, cervical region